=== PATIENT | female | born 1945 | race African-American/Black ===

== ENCOUNTER 2018-03-12 06:44 | Day surgery (SDC) | payer MEDICARE ==
--- OUTSIDE RECORDS SUMMARY | 2018-03-12 06:50 | XMS REPORT ---
:1945 Author Organization eClinicalWorks Care Team Providers Name Role Phone Ko Nii Provider Role Unavailable Allergies No Known Allergies Problems Problem Type Condition Code Onset Dates Condition Status Problem Benign essential HTN I10 Active Problem CKD (chronic kidney disease) stage 3, N18.3 Active GFR 30-59 ml/min Problem Allergic rhinitis J30.9 Active Problem Gastro-esophageal reflux disease K21.9 Active without esophagitis Problem Hyperlipemia, mixed E78.2 Active Medications No Known Medications Results No Known Results Summary Purpose eClinicalWorks Submission
--- OUTSIDE RECORDS SUMMARY | 2018-03-12 06:50 | XMS REPORT ---
:1945 Author Organization eClinicalWorks Care Team Providers Name Role Phone Ko Nii Provider Role Unavailable Allergies, Adverse Reactions, Alerts Substance Reaction Event Type N.K.D.A. Info Not Available Non Drug Allergy Problems Problem Type Condition Code Onset Dates Condition Status Assessment Encounter for screening for other Z11.59 Active viral diseases Assessment Hyperlipemia, mixed E78.2 Active Assessment Gastro-esophageal reflux disease K21.9 Active without esophagitis Assessment Screening for osteoporosis Z13.820 Active Problem Benign essential HTN I10 Active Problem CKD (chronic kidney disease) stage N18.3 Active 3, GFR 30-59 ml/min Problem Allergic rhinitis J30.9 Active Assessment Encounter for preventative adult Z00.01 Active health care exam with abnormal findings Assessment Benign essential HTN I10 Active Problem Gastro-esophageal reflux disease K21.9 Active without esophagitis Problem Hyperlipemia, mixed E78.2 Active Medications Medication Code Code Instructions Start End Status Dosage System Date Date Protonix [facility] 66116431439 40 MG Orally Active 1 tablet Once a day Norvasc [facility] 05583357908 10 MG Active TAKE 1 TABLET BY MOUTH EVERY DAY Hydrochlorothiazide [facility] 22438444197 12.5 MG Orally Active 1 tablet Once a day in the morning Irbesartan [facility] 20342075458 300 MG Orally Active 1 tablet Once a day Results No Known Results Summary Purpose eClinicalWorks Submission
--- OUTSIDE RECORDS SUMMARY | 2018-03-12 06:50 | XMS REPORT ---
:1945 Author Organization eClinicalWorks Care Team Providers Name Role Phone Nii Connell Provider Role Unavailable Allergies No Known Allergies Problems Problem Type Condition Code Onset Dates Condition Status Assessment CKD (chronic kidney disease) stage 3, N18.3 Active GFR 30-59 ml/min Assessment Gastro-esophageal reflux disease K21.9 Active without esophagitis Assessment Allergic rhinitis J30.9 Active Assessment Cough R05 Active Problem Benign essential HTN I10 Active Problem CKD (chronic kidney disease) stage 3, N18.3 Active GFR 30-59 ml/min Problem Allergic rhinitis J30.9 Active Assessment Benign essential HTN I10 Active Assessment Hyperlipemia, mixed E78.2 Active Problem Gastro-esophageal reflux disease K21.9 Active without esophagitis Problem Hyperlipemia, mixed E78.2 Active Medications Medication Code Code Instructions Start End Status Dosage System Date Date [facility] 80585272959 10 MG Active TAKE 1 TABLET BY MOUTH EVERY DAY Tessalon Perles [facility] 19656678482 100 MG Orally August Active 1 capsule Three times a , as needed day PRN Cough 2017 2017 Irbesartan [facility] 58160325106 300 MG Orally Active 1 tablet Once a day Protonix [facility] 22586376653 40 MG Orally Active 1 tablet Once a [facility] 53427[facility]9083 10 MG Orally Active 1 tablet Once a day Hydrochlorothiazide [facility] 28874255844 12.5 MG Orally Active 1 tablet Once a day in the morning Results No Known Results Summary Purpose eClinicalWorks Submission
--- OUTSIDE RECORDS SUMMARY | 2018-03-12 06:51 | XMS REPORT ---
:1945 Author Organization eClinicalWorks Care Team Providers Name Role Phone Ko Nii Provider Role Unavailable Allergies, Adverse Reactions, Alerts Substance Reaction Event Type N.K.D.A. Info Not Available Non Drug Allergy Problems Problem Type Condition Code Onset Dates Condition Status Assessment CKD (chronic kidney disease) stage 3, N18.3 Active GFR 30-59 ml/min Assessment Hyperlipemia, mixed E78.2 Active Assessment Gastro-esophageal reflux disease K21.9 Active without esophagitis Assessment Allergic rhinitis J30.9 Active Problem Benign essential HTN I10 Active Problem CKD (chronic kidney disease) stage 3, N18.3 Active GFR 30-59 ml/min Problem Allergic rhinitis J30.9 Active Assessment Benign essential HTN I10 Active Problem Gastro-esophageal reflux disease K21.9 Active without esophagitis Problem Hyperlipemia, mixed E78.2 Active Medications Medication Code Code Instructions Start End Status Dosage System Date Date [facility] 85335597453 10 MG Active TAKE 1 TABLET BY MOUTH EVERY DAY Hydrochlorothiazide [facility] 83514833483 12.5 MG Orally Active 1 tablet Once a day in the morning [facility] 3307[facility]20 10 MG Orally Active 1 tablet Once a day Irbesartan [facility] 49890261359 300 MG Orally Active 1 tablet Once a day Protonix [facility] 08582006667 40 MG Orally Active 1 tablet Once a day Results No Known Results Summary Purpose eClinicalWorks Submission
--- OUTSIDE RECORDS SUMMARY | 2018-03-12 06:51 | XMS REPORT ---
:1945 Author Organization eClinicalWorks Care Team Providers Name Role Phone Thompson Reese Provider Role Unavailable Allergies, Adverse Reactions, Alerts Substance Reaction Event Type N.K.D.A. Info Not Available Non Drug Allergy Problems Problem Type Condition Code Onset Dates Condition Status Problem Benign essential HTN I10 Active Problem CKD (chronic kidney disease) stage N18.3 Active 3, GFR 30-59 ml/min Problem Allergic rhinitis J30.9 Active Assessment Encounter for screening colonoscopy Z12.11 Active Problem Gastro-esophageal reflux disease K21.9 Active without esophagitis Problem Hyperlipemia, mixed E78.2 Active Medications Medication Code Code Instructions Start End Status Dosage System Date Date Protonix [facility] 67066179324 40 MG Orally Active 1 tablet Once a day [facility] 44594189393 10 MG Active TAKE 1 TABLET BY MOUTH EVERY DAY [facility] 55047932636 10 MG Orally Active 1 tablet Once a day Irbesartan [facility] 43958029525 300 MG Orally Active 1 tablet Once a day Hydrochlorothiazide [facility] 35664050710 12.5 MG Orally Active 1 tablet Once a day in the morning Results No Known Results Summary Purpose eClinicalWorks Submission
--- OUTSIDE RECORDS SUMMARY | 2018-03-12 06:51 | XMS REPORT ---
:1945 Author Organization eClinicalWorks Care Team Providers Name Role Phone Ko [facility] Provider Role Unavailable Allergies No Known Allergies Problems Problem Type Condition Code Onset Dates Condition Status Problem Benign essential HTN I10 Active Problem CKD (chronic kidney disease) stage 3, N18.3 Active GFR 30-59 ml/min Problem Allergic rhinitis J30.9 Active Assessment Benign essential HTN I10 Active Problem Gastro-esophageal reflux disease K21.9 Active without esophagitis Problem Hyperlipemia, mixed E78.2 Active Medications Medication Code System Code Instructions Start Date End Date Status Dosage Irbesartan [facility] 73377457687 300 MG Orally Active 1 tablet Once a day Results No Known Results Summary Purpose eClinicalWorks Submission
[2018-03-12] MEDS ORDERED: Ringers Lactate 1,000 ML IV ONE (07:16)
[2018-03-12] MEDS ORDERED: PROPOFOL 200 MG/20 ML VIAL IV ONE (08:37)
--- NOTE | 2018-03-12 09:03 | ENDO RPT ---
[address], [address] COLONOSCOPY PROCEDURE REPORT EXAM DATE: 03/12/2018 PATIENT NAME: Kendal Shah MR #: [id number] BIRTHDATE: 1945 ATTENDING: Thompson Reese DR STATUS: outpatient ADVANCED CLINICAL SPECIALIST: Dana Clement and Ida Sawyer RN INDICATIONS: The patient is a 72 yr old Female here for a colonoscopy due to colon cancer screening PROCEDURE PERFORMED: Colonoscopy with biopsy - cold polypectomy MEDICATIONS: Per Anesthesia. ESTIMATED BLOOD LOSS: None CONSENT: The patient understands the risks and benefits of the procedure and understands that these risks include, but are not limited to: sedation, allergic reaction, infection, perforation and/or bleeding. Alternative means of evaluation and treatment include, among others: physical exam, x-rays, and/or surgical intervention. The patient elects to proceed with this endoscopic procedure. DESCRIPTION OF PROCEDURE: During intra-op preparation period all mechanical medical equipment was checked for proper function. Hand hygiene and appropriate measures for infection prevention was taken. Procedure, possible complications, alternatives including, but not limited to possibility of bleeding, perforation, tear, infection, sepsis, need for surgery, need for blood transfusion, were explained to the patient. After the risks, benefits and alternatives of the procedure were thoroughly explained, Informed consent was verified, confirmed and timeout was successfully executed by the treatment team. The patient was placed in the left lateral position. A digital rectal exam was performed and revealed no abnormalities of the rectum. After appropriate level of anesthesia, the scope was passed. The EC-[id number] ([id number]) endoscope was introduced through the anus and advanced to the cecum, which was identified by both the appendix and ileocecal valve. The quality of the prep was good. The instrument was then slowly withdrawn as the colon was fully examined. Scope withdrawal time was 8 minutes. COLON FINDINGS: Moderate diverticulosis was noted in the sigmoid colon. No bleeding was noted from the diverticulosis. A diminutive smooth sessile polyp was found in the rectosigmoid colon. A biopsy was performed using cold forceps. Sample was obtained and sent to histology. Traversable stenosis (narrowing) measuring 4 mm in length was found in the rectosigmoid colon. There were no mucosal abnormalities of this region. Retroflexed views revealed no abnormalities. The scope was then completely withdrawn from the patient and the procedure terminated. ADVERSE EVENTS: There were no complications. IMPRESSIONS: 1. Moderate diverticulosis was noted in the sigmoid colon 2. Diminutive sessile polyp was found in the rectosigmoid colon; biopsy was performed using cold forceps 3. Stenosis (narrowing) measuring 4 mm in length in the rectosigmoid colon RECOMMENDATIONS: 1. follow-up: office 2 week(s) 2. await biopsy results 3. avoid NSAIDS for 2 weeks 4. low fiber / diverticular diet 5. yearly hemoccult starting in 4 years RECALL: Return in 5 year(s) for Colonoscopy, pending biopsy results. Thompson Reese DR eSigned: Thompson Reese DR 03/12/2018 9:03 AM cc: CPT CODES: ICD9 CODES: PATIENT NAME: Kendal Shah MR#: [id number]
== END 2018-03-12 09:40 | disposition home or self-care (01) ==
LOC: OR 06:44
PROVIDERS: ATTEND Surgery
PROC: 0DBN8ZX Excision of Sigmoid Colon, Via Natural or Artificial Opening Endoscopic, Diagnostic (ICD-10-PCS; principal; 2018-03-12 08:30)
DX: Z12.11 Encounter for screening for malignant neoplasm of colon (principal); K63.5 Polyp of colon; K57.30 Diverticulosis of large intestine without perforation or abscess without bleeding; K56.699 Other intestinal obstruction unspecified as to partial versus complete obstruction; I10 Essential (primary) hypertension; E78.2 Mixed hyperlipidemia; K21.9 Gastro-esophageal reflux disease without esophagitis; Z86.010 Personal history of colon polyps; Z88.6 Allergy status to analgesic agent; Z82.49 Family history of ischemic heart disease and other diseases of the circulatory system
CPT/HCPCS: 88305

== ENCOUNTER 2018-03-25 10:27 | Emergency (ER) | payer MEDICARE ==
--- OUTSIDE RECORDS SUMMARY | 2018-03-25 10:29 | XMS REPORT ---
[...] Start End Status Dosage System Date Date [facility] [place] 18111510434 10 MG Active TAKE 1 TABLET BY MOUTH EVERY DAY Tessalon Perles [facility] 90766369158 100 MG Orally August Active 1 capsule Three times a , as needed day PRN Cough 2017 2017 Irbesartan [facility] 14715830379 300 MG Orally Active 1 tablet Once a day Protonix [facility] 91848660912 40 MG Orally Active 1 tablet Once a day [facility] 71369901121 10 MG Orally Active 1 tablet Once a day Hydrochlorothiazide [facility] 15171485211 12.5 MG Orally Active 1 tablet Once a day in the morning Results No Known Results Summary Purpose eClinicalWorks Submission
--- OUTSIDE RECORDS SUMMARY | 2018-03-25 10:30 | XMS REPORT ---
[...] End Status Dosage System Date Date Protonix [facility] 12692270299 40 MG Orally Active 1 tablet Once a day Norvasc [facility] 06257125923 10 MG Active TAKE 1 TABLET BY MOUTH EVERY DAY Hydrochlorothiazide [facility] 95709222451 12.5 MG Orally Active 1 tablet Once a day in the morning Irbesartan [facility] 97646970461 300 MG Orally Active 1 tablet Once a day Results No Known Results Summary Purpose eClinicalWorks Submission
--- OUTSIDE RECORDS SUMMARY | 2018-03-25 10:30 | XMS REPORT ---
:1945 Author Organization eClinicalWorks Care Team Providers Name Role Phone Ko [facility] Provider Role Unavailable Allergies No Known Allergies [...] Start Date End Date Status Dosage Irbesartan [facility] 97259811477 300 MG Orally Active 1 tablet Once a day Results No Known Results Summary Purpose eClinicalWorks Submission
--- OUTSIDE RECORDS SUMMARY | 2018-03-25 10:30 | XMS REPORT ---
[...] End Status Dosage System Date Date Protonix [facility] 12969292665 40 MG Orally Active 1 tablet Once a day [facility] 81456482264 10 MG Active TAKE 1 TABLET BY MOUTH EVERY DAY [facility] 01104332222 10 MG Orally Active 1 tablet Once a day Irbesartan [facility] 01552204224 300 MG Orally Active 1 tablet Once a day Hydrochlorothiazide [facility] 27551730349 12.5 MG Orally Active 1 tablet Once a day in the morning Results No Known Results Summary Purpose eClinicalWorks Submission
--- OUTSIDE RECORDS SUMMARY | 2018-03-25 10:30 | XMS REPORT ---
[...] Start End Status Dosage System Date Date [facility] 83357267002 10 MG Active TAKE 1 TABLET BY MOUTH EVERY DAY Hydrochlorothiazide [facility] 70131144554 12.5 MG Orally Active 1 tablet Once a day in the morning [facility] 26050014197 10 MG Orally Active 1 tablet Once a day Irbesartan [facility] 36441441247 300 MG Orally Active 1 tablet Once a day Protonix [facility] 57611523621 40 MG Orally Active 1 tablet Once a day Results No Known Results Summary Purpose eClinicalWorks Submission
[2018-03-25] MEDS ORDERED: IBUPROFEN 400 MG TAB ONE (12:12)
[2018-03-25] MEDS ORDERED: ACETAMINOPHEN 500 MG TAB ONE (12:13)
--- NOTE | 2018-03-25 12:24 | RAD REPORT ---
EXAM DESCRIPTION: RAD - Shoulder Right 2 View - 03/25/2018 11:56 am CLINICAL HISTORY: Right shoulder pain FINDINGS: No fracture or dislocation is seen. Mild to moderate osteoarthritis involves the AC joint consisting of small osteophytes and joint space narrowing.
--- NOTE | 2018-03-25 13:04 | ER ---
Nurse's Notes [facility] Name: Kendal Shah Age: 72 yrs Sex: Female : 1945 Arrival Date: 03/25/2018 Time: 10:29 Bed 10 Private MD: Nii Connell Diagnosis: Right Upper Extremity Pain Presentation: 03/25 10:39 Presenting complaint: Patient states: Right shoulder pain radiates to wrist since last jl7 night. Denies any trauma. Transition of care: patient was not received from another setting of care. Onset of symptoms was March 24, 2018. Risk Assessment: Do you want to hurt yourself or someone else? Patient reports no desire to harm self or others. Initial Sepsis Screen: Does the patient meet any 2 criteria? No. Patient's initial sepsis screen is negative. Does the patient have a suspected source of infection? No. Patient's initial sepsis screen is negative. Care prior to arrival: None. 10:39 Method Of Arrival: Ambulatory jl7 10:39 Acuity: ARTHUR 4 jl7 Historical: - Allergies: 10:41 No Known Allergies; jl7 - PMHx: 10:41 Hypertension; GERD; jl7 - PSHx: 10:41 right hand surgery; Hysterectomy; ; Right breast biopsy; Left knee replacement;jl7 - Immunization history:: Adult Immunizations up to date. - Social history:: Smoking status: Patient/guardian denies using tobacco. - Ebola Screening: : No symptoms or risks identified at this time. - Family history:: not pertinent. - Hospitalizations: : No recent hospitalization is reported. Screenin:04 Abuse screen: Denies threats or abuse. Denies injuries from another. Nutritional iw screening: No deficits noted. Tuberculosis screening: No symptoms or risk factors identified. Fall Risk None identified. Assessment: 11:03 General: Appears in no apparent distress. comfortable, Behavior is calm, cooperative. iw Pain: Complains of pain in posterior aspect of right shoulder and right wrist. Neuro: Level of Consciousness is awake, alert, obeys commands, Oriented to person, place, time, situation, Moves all extremities. Full function. Cardiovascular: Patient's skin is warm and dry. Respiratory: Respiratory effort is even, unlabored, Respiratory pattern is regular, symmetrical. Derm: Skin is intact, is healthy with good turgor. Musculoskeletal: Range of motion: intact in all extremities, Reports pain in anterior aspect of right shoulder and right wrist. Vital Signs: 10:41 BP 177 / 81; Pulse 97; Resp 18 S; Temp 99.1(O); Pulse Ox 99% on R/A; Weight 83.91 kg jl7 (R); Height 5 ft. 4 in. (162.56 cm) (R); Pain 10/10; 12:30 BP 155 / 79; Pulse 79; Resp 16; Pulse Ox 97% ; Pain 5/10; jl7 10:41 Body Mass Index 31.75 (83.91 kg, 162.56 cm) jl7 ED Course: 10:29 Patient arrived in ED. as 10:29 Nii Connell DO is Private Physician. as 10:40 Triage completed. jl7 10:41 Arm band placed on right wrist. jl7 10:43 Anai Ellis RN is Primary Nurse. iw 10:59 Carlo Garcia MD is Attending Physician. wa 11:05 Patient has correct armband on for positive identification. iw 11:50 X-ray completed. Portable x-ray completed in exam room. Patient tolerated procedure ag1 well. 11:53 Shoulder Right (2 View) XRAY In Process Unspecified. EDMS 12:28 EKG done, by aeronautical engineering technologist. reviewed by Carlo Garcia MD. at1 13:03 Sameer Bill MD is Referral Physician. wa 13:20 No provider procedures requiring assistance completed. Patient did not have IV access iw during this emergency room visit. Administered Medications: 12:14 Drug: Tylenol 1000 mg Route: PO; iw 13:00 Follow up: Response: No adverse reaction; Pain is decreased iw 12:14 Not Given (Patient Refused): Motrin 400 mg PO once iw Outcome: 13:04 Discharge ordered by . wa 13:22 Discharged to home ambulatory. iw 13:22 Condition: good 13:22 Discharge instructions given to patient, Instructed on discharge instructions, follow up and referral plans. Demonstrated understanding of instructions, follow-up care. 13:23 Patient left the ED. iw Signatures: Dispatcher [employer] EDMS Anastasiya Rodriguez Irene, RN RN iw Josefa Thorne, manager quality EKG Tat1 Ruth Camarillo ag1 Jax Dubois RN RN jlCarlo Carballo MD MD wa
--- NOTE | 2018-03-25 13:04 | EDPHYS ---
Physician Documentation [facility] Name: Kendal Shah Age: 72 yrs Sex: Female : 1945 Arrival Date: 03/25/2018 Time: 10:29 Bed 10 Private MD: Nii Connell ED Physician Carlo Garcia HPI: 03/25 12:00 This 72 yrs old Black Female presents to ER via Ambulatory with complaints of Shoulder wa Pain. 12:00 The patient or guardian complains of tenderness. right shoulder. Context: denies wa injury. states awoke with R shoulder pain with assoc numbness to the right arm. worse with movement. denies SOB. denies chest pain. Onset: The symptoms/episode began/occurred today. Modifying factors: the symptoms are alleviated by nothing. The symptoms are aggravated by lifting weight, movement, rotation of arm. Associated signs and symptoms: Pertinent negatives: chest pain, diaphoresis, dyspnea, shortness of breath, tingling. Severity of symptoms: At their worst the symptoms were moderate, in the emergency department the symptoms are unchanged. The patient has not experienced similar symptoms in the past. The patient has not recently seen a physician. Historical: - Allergies: 10:41 No Known Allergies; jl7 - PMHx: 10:41 Hypertension; GERD; jl7 - PSHx: 10:41 right hand surgery; Hysterectomy; ; Right breast biopsy; Left knee replacement;jl7 - Immunization history:: Adult Immunizations up to date. - Social history:: Smoking status: Patient/guardian denies using tobacco. - Ebola Screening: : No symptoms or risks identified at this time. - Family history:: not pertinent. - Hospitalizations: : No recent hospitalization is reported. ROS: 12:03 Constitutional: Negative for fever, chills, and weight loss, Eyes: Negative for injury, wa pain, redness, and discharge, ENT: Negative for injury, pain, and discharge, Neck: Negative for injury, pain, and swelling, Cardiovascular: Negative for chest pain, palpitations, and edema, Respiratory: Negative for shortness of breath, cough, wheezing, and pleuritic chest pain, Abdomen/GI: Negative for abdominal pain, nausea, vomiting, diarrhea, and constipation, Back: Negative for injury and pain, : Negative for injury, bleeding, discharge, and swelling, Skin: Negative for injury, rash, and discoloration, Neuro: Negative for headache, weakness, numbness, tingling, and seizure, Psych: Negative for depression, anxiety, suicide ideation, homicidal ideation, and hallucinations. 12:03 MS/extremity: Positive for pain, tenderness, of the right shoulder and right arm, Negative for contusion, deformity, ecchymosis, erythema. 12:03 All other systems are negative. Exam: 12:03 Constitutional: This is a well developed, well nourished patient who is awake, alert, wa and in no acute distress. Head/Face: Normocephalic, atraumatic. Eyes: Pupils equal round and reactive to light, extra-ocular motions intact. Lids and lashes normal. Conjunctiva and sclera are non-icteric and not injected. Cornea within normal limits. Periorbital areas with no swelling, redness, or edema. ENT: Nares patent. No nasal discharge, no septal abnormalities noted. Tympanic membranes are normal and external auditory canals are clear. Oropharynx with no redness, swelling, or masses, exudates, or evidence of obstruction, uvula midline. Mucous membranes moist. Neck: Trachea midline, no thyromegaly or masses palpated, and no cervical lymphadenopathy. Supple, full range of motion without nuchal rigidity, or vertebral point tenderness. No Meningismus. Chest/axilla: Normal chest wall appearance and motion. Nontender with no deformity. No lesions are appreciated. Cardiovascular: Regular rate and rhythm with a normal S1 and S2. No gallops, murmurs, or rubs. Normal PMI, no JVD. No pulse deficits. Respiratory: Lungs have equal breath sounds bilaterally, clear to auscultation and percussion. No rales, rhonchi or wheezes noted. No increased work of breathing, no retractions or nasal flaring. Abdomen/GI: Soft, non-tender, with normal bowel sounds. No distension or tympany. No guarding or rebound. No evidence of tenderness throughout. Back: No spinal tenderness. No costovertebral tenderness. Full range of motion. Skin: Warm, dry with normal turgor. Normal color with no rashes, no lesions, and no evidence of cellulitis. Neuro: Awake and alert, GCS 15, oriented to person, place, time, and situation. Cranial nerves II-XII grossly intact. Motor strength 5/5 in all extremities. Sensory grossly intact. Cerebellar exam normal. Normal gait. Psych: Awake, alert, with orientation to person, place and time. Behavior, mood, and affect are within normal limits. 12:03 Musculoskeletal/extremity: Extremities: noted in the right shoulder and right arm: pain, tenderness. Vital Signs: 10:41 BP 177 / 81; Pulse 97; Resp 18 S; Temp 99.1(O); Pulse Ox 99% on R/A; Weight 83.91 kg jl7 (R); Height 5 ft. 4 in. (162.56 cm) (R); Pain 10/10; 12:30 BP 155 / 79; Pulse 79; Resp 16; Pulse Ox 97% ; Pain 5/10; jl7 10:41 Body Mass Index 31.75 (83.91 kg, 162.56 cm) jl7 MDM: 10:59 Patient medically screened. wa 12:04 Differential diagnosis: DJD, tendonitis, consider radiculopathy. will check EKG to r/o wa ACS, although less likely. 13:00 Data reviewed: vital signs, nurses notes, EKG, radiologic studies. Test interpretation: wa by ED physician or midlevel provider: EKG: HR 85. NSR. no acute ischemic changes. R shoulder X-ray: Mild to moderate osteoarthritis.. Response to treatment: the patient's symptoms have mildly improved after treatment. ED course: will d/c with f/u with neurology. may need MRI to r/o cervical radiculopathy. 03/25 11:41 Order name: Shoulder Right (2 View) XRAY; Complete Time: 12:51 oh 03/25 11:41 Order name: EKG - Nurse/Tech; Complete Time: 12:26 wa 03/25 12:44 Order name: EKG Electrocardiogram EDNY 03/25 13:00 Order name: Sling: OTTO; Complete Time: 13:57 oh Administered Medications: 12:14 Drug: Tylenol 1000 mg Route: PO; iw 13:00 Follow up: Response: No adverse reaction; Pain is decreased iw 12:14 Not Given (Patient Refused): Motrin 400 mg PO once iw Disposition: 03/25/18 13:04 Discharged to Home. Impression: Right Upper Extremity Pain. - Condition is Stable. - Medication Reconciliation Form, Thank You Letter, Antibiotic Education, Prescription Opioid Use form. - Follow up: Sameer Bill MD; When: 2 - 3 days; Reason: Recheck today's complaints. - Problem is new. - Symptoms have improved. - Notes: follow up with the neurologist for further 3evaluation. you may need an MRI to make sure you do not have a nerve impingement. wear sling for comfort. take tylenol and aleve as needed as discussed Signatures: Dispatcher [employer] EDAnai Montenegro RN RN iw Jax Dubois RN RN jl7 Carlo Garcia MD MD wa Corrections: (The following items were deleted from the chart) 13:23 13:04 03/25/2018 13:04 Discharged to Home. Impression: Right Upper Extremity Pain. iw Condition is Stable. Forms are Medication Reconciliation Form, Thank You Letter, Antibiotic Education, Prescription Opioid Use. Follow up: Sameer Bill; When: 2 - 3 days; Reason: Recheck today's complaints. Problem is new. Symptoms have improved. wa
--- NOTE | 2018-03-25 13:53 | EKG ---
Test Date: 2018-03-25 Test Time: 12:18:28 Lan Analyst: PREET MEASUREMENT RESULTS: Intervals: Rate: 85 ME: 162 QRSD: 62 QT: 362 QTc: 430 [place]: P: 64 ME: 162 QRS: 52 T: 43 INTERPRETIVE STATEMENTS: Normal sinus rhythm Septal infarct, age undetermined Abnormal ECG Compared to ECG 06/20/2015 09:18:13 Myocardial infarct finding now present Sinus bradycardia no longer present Electronically Signed On 03-25-18 13:53:03 CDT by Joseph Drummond
== END 2018-03-25 13:23 | disposition home or self-care (01) ==
LOC: ER 10:27
DX: M25.511 Pain in right shoulder (principal)
CPT/HCPCS: 93005; 99283

== ENCOUNTER 2020-08-22 06:26 | Observation (INO) | payer MEDICARE ==
--- OUTSIDE RECORDS SUMMARY | 2020-08-22 06:29 | XMS REPORT | Continuity of Care Document ---
:1945 Author Organization [facility] t Address [address] [place] [place] [address] Care Team Providers Name Role Phone Unavailable Unavailable Unavailable Problems This patient has no known problems. Allergies, Adverse Reactions, Alerts This patient has no known allergies or adverse reactions. Medications Ordered Filled Start Stop Current Ordering Indication Dosage Frequency Signature Comments Components Source Medication Medication Date Date Medication? Clinician (SIG) Name Name [facility] Aspir-Low Yes Nii [address] [facility] 1-20 [facility] 00 [facility] ent [facility] Atorvastati Atorvastati 2018-05 Yes Nii TAKE [address] [facility] n Calcium n Calcium 0-17 Connell TABLET BY [facility] - 00:00: MOUTH ONCE Memoria 00 DAILY l [facility] ent [facility] Dexilant Dexilant Yes Nii [address] [facility] 7-17 [facility]nell [facility]: [facility] 00 l [facility] ent [facility] Norvasc Norvasc Yes Nii TAKE [facility]nell TABLET BY [facility] - MOUTH ONCE Memoria DAILY l [facility] ent [facility] Irbesartan Irbesartan Yes Nii [address] [facility] Clinics Cromolyn Cromolyn Yes Nii [address] [facility] Sodium Sodium Connell each [facility] - nostril [facility] ent [facility] Hydrochloro Hydrochloro Yes Nii [address] [facility] thiazide thiazide Connell in the [facility] Procedures This patient has no known procedures. Encounters Start End Encounter Admission Attending Care Care Encounter Source Date/Time Date/Time Type Type Clinicians Facility Department ID 2020-07-28 2020-07-28 Outpatient [facility] [id number] 2020-04-29 2020-04-29 [id number] 2020-04-28 2020-04-28 [id number] 2020-03-16 2020-03-16 [facility] [id number] 2020-02-04 2020-02-04 [facility] [id number] [facility] 09[facility]25:00 09:25:00 t [employer] [facility] Out[facility] Clinics 2020-01-28 2020-01-28 [facility] [id number] [facility] 13:40:00 13:40:00 [place] [facility] [employer] [facility] Clinics 2020-01-28 2020-01-28 [facility] [id number] [facility] 13:40:00 13:40:00 t [employer] - [employer] [facility] Medicine Out[facility] Clinics 2019-10-29 2019-10-29 [facility] [id number] 14:30:00 14:30:00 [place] [facility] [employer] [facility] Medicine Out[facility] Clinics 2019-09-04 2019-09-04 [facility] [id number] [facility] 14:55:00 14:55:00 [place] [facility] [employer] [facility] Medicine l Medicine Outpati ent Clinics 2019-06-15 2019-06-15 [facility] [id number] 14:30:00 14:30:00 t [employer] [facility] Medicine l Medicine Outpati ent Clinics 2019-04-24 2019-04-24 [facility] [id number] [address] 10:04:00 10:04:[address] [employer] [address] [facility] Medicine Medicine Outpati ent Clinics 2019-03-12 2019-03-12 [facility] [id number] [address] 14:30:00 14:30:00 [place] [employer] [place] [facility] - Drive [facility] Medicine Outpati ent Clinics 2019-02-04 2019-02-04 [facility] [id number] [address] 11:01:00 11:01:00 t [place] [employer] [place] - Drive [facility] Medicine Outpati ent Clinics 2018-12-16 2018-12-16 [facility] [id number] 09:46:00 09:46:00 t [place] [employer] - Drive [facility] Medicine Outpati ent Clinics 2018-12-10 2018-12-10 [facility] [id number] 14:45:00 14:45:00 [place] [employer] - Drive [facility] Medicine Outpati ent Clinics 2018-09-10 2018-09-10 [facility] [id number] [address] 14:45:00 14:45:00 t [place] [employer] [place] - Drive [facility] Medicine Outpati ent Clinics 2018-05-15 2018-05-15 [facility] [id number] 13:30:00 13:30:00 t [place] [employer] - Drive [facility] Medicine Outpati ent Clinics 2018-02-11 2018-02-11 [facility] [id number] 14:07:00 14:07:00 t [place] [employer] - Drive [facility] Medicine Outpati ent Clinics 2018-02-11 2018-02-11 [facility] [id number] 13:30:00 13:30:00 t Specialty/U Erika kes [facility] Clin[facility] 2018-01-16 2018-01-16 [facility] [id number] 13:30:00 13:30:00 t [place] [employer] - Drive [facility] Medicine Outpati ent Clinics 2017-12-03 2017-12-03 [facility] [id number] [facility] [address] 11:26:00 11:26:[address] [facility] 2017-11-04 2017-11-04 [facility] [id number] [facility] [address] 15:30:00 15:30:[address] [employer] 2017-09-16 2017-09-16 Outpatient Britney Tant [id number] [facility] [address] 13:30:00 13:30:[address] [facility] Results This patient has no known results.
[2020-08-22] MEDS ORDERED: MORPHINE 4 MG/ML SYR ONE (07:45)
[2020-08-22] MEDS ORDERED: ONDANSETRON 4 MG/2 ML VIAL ONE (07:45)
[2020-08-22] MEDS ORDERED: NA CHLORIDE 0.9% 1,000 ML ONE (07:46)
[2020-08-22 08:14] LABS: Absolute Lymphocytes (CBC) 1.1 K/uL (0.7-4.9); Basophils % 0.7 % (0-1.3); Hematocrit 40.3 % (36.0-45.0); Lymphocytes % 13.2 % (15.3-44.8); MPV 9.9 fL (7.6-11.3); RBC Red Blood Cell Count 4.38 M/uL (3.86-4.86)
[2020-08-22 08:34] LABS: Urine Blood TRACE (Negative); Urine Glucose NEGATIVE (Negative); Urine Protein 1+ (NEG); Urine Specific Gravity >1.030 (1.005-1.030); Urine pH 7.5 (5.0-7.0)
[2020-08-22 08:42] LABS: ALT/SGPT 34 U/L (12-78); AST/SGOT 25 U/L (15-37); Albumin 4.2 g/dL (3.4-5.0); Alkaline Phosphatase 83 U/L (45-117); BUN Blood Urea Nitrogen 14 mg/dL (7-18); Bicarbonate 26 mmol/L (21-32); Bilirubin Direct 0.1 mg/dL (0-0.2); Bilirubin Total 0.4 mg/dL (0.2-1.0); Glucose Level 112 mg/dL (74-106); Lipase 52 U/L (73-393); Potassium 3.3 mmol/L (3.5-5.1); Protein, Total 8.8 g/dL (6.4-8.2); Sodium Level 140 mmol/L (136-145); Troponin (Emerg Dept Use Only) < 0.02 ng/mL (0.0-0.045)
--- NOTE | 2020-08-22 08:56 | RAD REPORT ---
EXAM DESCRIPTION: CT - Abdomen Pelvis W Contrast - 08/22/2020 8:24 am CLINICAL HISTORY: ABD PAIN COMPARISON: No comparisons TECHNIQUE: Biphasic, helical CT imaging of the abdomen and pelvis was performed following 100 ml non -ionic IV contrast. No oral contrast administered. All CT scans are performed using dose optimization technique as appropriate and may include automated exposure control or mA/KV adjustment according to patient size. FINDINGS: No suspicious findings in the lung bases. The liver, spleen, and pancreas show no suspicious findings. Liver attenuation is borderline fatty in filtrated. No portal vein abnormality. Gallbladder and biliary tree are also without suspicious findi ng. Symmetric renal function is seen with no hydronephrosis or suspicious renal mass. No pyelonephritis o r acute parenchymal process. No bladder abnormalities. No adrenal abnormalities. Uterus is absent. Ov chidi are absent or atrophic. No adnexal abnormality. Small hiatal hernia is present. This distorts the cunningham of the distal esophagus and proximal stomach. No gross evidence for mass or ulceration. Small ulcer or mass at the mucosal level can be obscured. Wall thickness of the greater curvature stomach is distorted by peristalsis. Antrum does not appear a bnormally thickened. No duodenal abnormality. Small bowel is otherwise unremarkable. The appendix is not identified and may be absent. No indirect evidence for appendicitis. Cecum lies along the floor t he pelvis on the right. No active colon process identified. No free air, free fluid or inflammatory stranding. No hernia, mass or bulky lymphadenopathy. No suspicious bony findings. Prominent degenerative changes are present at the lumbosacral junction. L5 pars defects are present. The L5-S1 disc space is effaced and there is probably bony fusion across this disc level. IMPRESSION: Contrast enhanced CT abdomen and pelvis showing no acute or emergent finding. Small hiatal hernia is present. No gross abnormality of the stomach or distal esophagus. Mucosal leve l ulceration or small mass lesion can be occult on CT imaging.
--- NOTE | 2020-08-22 09:40 | RAD REPORT ---
EXAM DESCRIPTION: US - Abdomen Exam Limited - 08/22/2020 9:28 am CLINICAL HISTORY: RUQ abd pain COMPARISON: Abdomen Pelvis W Contrast dated 08/22/2020 FINDINGS: Gallbladder size is normal. No gallstones identified. No gallbladder wall thickening or ma ss. There may be a trace amount of sludge layering on the dependent portion of the gallbladder. Commo n bile duct is normal with no common duct stone identified. Partially imaged liver shows no gross abnormality. IMPRESSION: No gallstones or significant gallbladder finding. Patient may have a trace amount of slu dge in the gallbladder lumen. No biliary tree abnormality seen.
[2020-08-22] MEDS ORDERED: METRONIDAZOLE 500mg IVPB 500 MG/100 ML BAG IV ONE (09:55)
[2020-08-22] MEDS ORDERED: CEFTRIAXONE/SWI 1gm 1 GM/10 ML SYR ONE (09:55)
--- NOTE | 2020-08-22 11:17 | ER ---
Nurse's Notes [facility] Name: Kendal Shah Age: 74 yrs Sex: Female : 1945 Arrival Date: 08/22/2020 Time: 06:30 Bed 19 Private MD: Nii Connell Diagnosis: Epigastric abdominal tenderness;Upper abdominal pain, unspecified Presentation: 08/22 06:41 Chief complaint: Patient states: she woke up at approx 0300 this morning with bb epigastric pain radiating to her back denies vomiting or diarrhea. Coronavirus screen: At this time, the client does not indicate any symptoms associated with coronavirus-19. Ebola Screen: No symptoms or risks identified at this time. Initial Sepsis Screen: Does the patient meet any 2 criteria? No. Patient's initial sepsis screen is negative. Does the patient have a suspected source of infection? No. Patient's initial sepsis screen is negative. Risk Assessment: Do you want to hurt yourself or someone else? Patient reports no desire to harm self or others. Onset of symptoms was August 22, 2020. 06:41 Method Of Arrival: Ambulatory bb 06:41 Acuity: ARTHUR 3 bb Triage Assessment: 07:00 General: Appears in no apparent distress. uncomfortable, obese, Behavior is bp cooperative, appropriate for age, anxious. Pain: Complains of pain in abdomen. EENT: No deficits noted. Neuro: No deficits noted. Cardiovascular: No deficits noted. Respiratory: No deficits noted. GI: Abdomen is non-distended, obese. : No signs and/or symptoms were reported regarding the genitourinary system. Derm: No deficits noted. Musculoskeletal: No deficits noted. Historical: - Allergies: 07:09 No Known Allergies; bp - Home Meds: 10:40 atorvastatin 10 mg oral tab 1 tab once daily [Active]; hydrochlorothiazide 12.5 mg Oral bp cap 1 cap once daily [Active]; amlodipine 10 mg tab 1 tab once daily [Active]; irbesartan 300 mg oral tab 1 tab once daily [Active]; Vitamin D Oral [Active]; cromolyn 5.2 mg/spray (4 %) Nasal spry 1 spray 3 times per day [Active]; - PMHx: 07:09 GERD; Hypertension; bp - Immunization history:: Adult Immunizations up to date. - Social history:: Smoking status: Patient denies any tobacco usage or history of. Patient/guardian denies using alcohol, street drugs, Patient/guardian denies using The patient lives with family, with spouse. - Family history:: not pertinent. Screenin:00 Abuse screen: Denies threats or abuse. Denies injuries from another. Nutritional bp screening: No deficits noted. Tuberculosis screening: No symptoms or risk factors identified. Fall Risk None identified. Assessment: 07:00 General: SEE TRIAGE NOTE. bp 08:09 Reassessment: No changes from previously documented assessment. Patient and/or family bp updated on plan of care and expected duration. Pain level reassessed. PT TO CT. 09:10 Reassessment: PT IN U/S. bp 10:22 Reassessment: No changes from previously documented assessment. Patient and/or family bp updated on plan of care and expected duration. Pain level reassessed. PT RETURNED FROM U/S. DISPO PENDING. 11:06 Reassessment: No changes from previously documented assessment. Patient and/or family bp updated on plan of care and expected duration. Pain level reassessed. ALL CURRENT ORDERS COMPLETED. 11:53 Reassessment: D/C CANCELLED BY . ADMIT PENDING. Pain: Complains of pain in abdomen. bp 14:00 Reassessment: No changes from previously documented assessment. Patient and/or family bp updated on plan of care and expected duration. Pain level reassessed. Patient is alert, oriented x 3, equal unlabored respirations, skin warm/dry/pink. ADMIT INITIATED. 16:00 Reassessment: No changes from previously documented assessment. Patient and/or family bp updated on plan of care and expected duration. Pain level reassessed. Patient is alert, oriented x 3, equal unlabored respirations, skin warm/dry/pink. ADMIT IN PROCESS. 17:00 GI: Bowel sounds present X 4 quads. Abd is soft X 4 quads. bp 17:09 Reassessment: REPORT TO LLOYD HERNANDEZ FOR RM 232. bp Vital Signs: 06:41 BP 160 / 81; Pulse 104; Resp 18 S; Temp 98.4(O); Pulse Ox 99% on R/A; Weight 81.65 kg bb (R); Height 5 ft. 4 in. (162.56 cm) (R); Pain 10/10; 08:09 BP 156 / 69; Pulse 98; Resp 16; Pulse Ox 96% ; bp 10:10 BP 151 / 72; Pulse 98; Resp 17; Pulse Ox 98% ; bp 11:06 BP 141 / 94; Pulse 100; Resp 17; Pulse Ox 100% ; bp 11:54 BP 141 / 79; Pulse 108; Resp 17; Pulse Ox 92% on R/A; bp 06:41 Body Mass Index 30.90 (81.65 kg, 162.56 cm) bb ED Course: 06:30 Patient arrived in ED. es 06:30 Nii Connell DO is Private Physician. es 06:41 Arm band placed on Patient placed in an exam room, on a stretcher, on pulse oximetry. bb 06:43 Triage completed. bb 06:44 Andrés Adhikari MD is Attending Physician. [facility] 06:50 EKG done, by ED staff, reviewed by Andrés Adhikari MD. bb 07:00 Patient has correct armband on for positive identification. Bed in low position. Call bp light in reach. Side rails up X2. 07:03 Attending Physician role handed off by Andrés Adhikari MD ma2 07:03 Richard Mao MD is Attending Physician. ma2 07:08 Rolf Arroyo, DAVID is Primary Nurse. bp 08:05 Inserted saline lock: 24 gauge in right wrist, using aseptic technique. Blood collected.bp 08:08 Hepatic Function Sent. bp 08:08 CBC with Diff Sent. bp 08:08 Basic Metabolic Panel Sent. bp 08:08 Lipase Sent. bp 08:24 CT Abd/Pelvis - IV Contrast Only In Process Unspecified. EDMS 09:28 US Abdomen Limited In Process Unspecified. EDMS 11:16 Sawyer Cordoba MD is Referral Physician. ma2 11:16 Nii Connell DO is Referral Physician. ma2 11:54 Arthur Means is Hospitalizing Provider. ma2 17:10 No provider procedures requiring assistance completed. Patient admitted, IV remains in bp place. Administered Medications: 08:07 Drug: morphine 4 mg Route: IVP; Site: right wrist; bp 09:44 Follow up: Response: Pain is decreased bp 08:08 Drug: Zofran (Ondansetron) 4 mg Route: IVP; Site: right wrist; bp 09:44 Follow up: Response: No adverse reaction bp 08:08 Drug: NS 0.9% 1000 ml Route: IV; Rate: 1 bolus; Site: right wrist; bp 17:26 Follow up: IV Status: Completed infusion; IV Intake: 1000ml bp 09:15 Drug: Rocephin (cefTRIAXone) 1 grams Route: IV; Rate: calculated rate; Site: right bp wrist; 11:55 Follow up: IV Status: Completed infusion; IV Intake: 50ml bp 09:15 Drug: Flagyl 500 mg Volume: 100 ml; Route: IVPB; Rate: 200 ml/hr; Infused Over: 30 bp mins; Site: right wrist; 11:55 Follow up: IV Status: Completed infusion; IV Intake: 100ml bp 11:45 Drug: GI Cocktail without - (Maalox Suspension 30 ml, Lidocaine Liquid 2 % 15 bp ml) Route: PO; 13:42 Follow up: Response: No adverse reaction bp 11:45 Drug: Dilaudid (HYDROmorphone) 1 mg Route: IVP; Site: right wrist; bp 13:41 Follow up: Response: Pain is decreased bp 11:45 Drug: Promethazine 12.5 mg Route: IVP; Site: right wrist; bp 13:41 Follow up: Response: No adverse reaction bp Intake: 11:55 IV: 50ml; Total: 50ml. bp 11:55 IV: 100ml; Total: 150ml. bp 17:26 IV: 1000ml; Total: 1150ml. bp Outcome: 11:16 Discharge ordered by . fransisco 11:55 Decision to Hospitalize by Provider. ma2 17:25 Admitted to Med/surg accompanied by tech, room 232, with chart, Report called to LLOYD mitchell RN 17:25 Condition: stable 17:25 Instructed on the need for admit. 17:52 Patient left the ED. bp Signatures: Dispatcher [employer] Mary Ann Pappas Brenda, RN RN Rolf Lundberg RN RN Richard Rodney MD MD ma2 Andrés Adhikari MD MD [email or web address] Corrections: (The following items were deleted from the chart) 10:43 07:09 Home Meds: Unable to obtain; bp bp
--- NOTE | 2020-08-22 11:17 | EDPHYS ---
Physician Documentation [facility] Name: Kendal Shah Age: 74 yrs Sex: Female : 1945 Arrival Date: 08/22/2020 Time: 06:30 Bed 19 Private MD: [facility] ED Physician Richard Mao HPI: 08/22 08:47 This 74 yrs old Black Female presents to ER via Ambulatory with complaints of Abdominal ma2 Pain. 08:47 The patient presents with abdominal pain. Onset: The symptoms/episode began/occurred ma2 gradually, 1 day(s) ago. Associated signs and symptoms: Pertinent negatives: anorexia, constipation, diarrhea, dysuria. Severity of pain: At its worst the pain was moderate in the emergency department the pain is unchanged. The patient has not experienced similar symptoms in the past. Historical: - Allergies: 07:09 No Known Allergies; bp - Home Meds: 10:40 atorvastatin 10 mg oral tab 1 tab once daily [Active]; hydrochlorothiazide 12.5 mg Oral bp cap 1 cap once daily [Active]; amlodipine 10 mg tab 1 tab once daily [Active]; irbesartan 300 mg oral tab 1 tab once daily [Active]; Vitamin D Oral [Active]; cromolyn 5.2 mg/spray (4 %) Nasal spry 1 spray 3 times per day [Active]; - PMHx: 07:09 GERD; Hypertension; bp - Immunization history:: Adult Immunizations up to date. - Social history:: Smoking status: Patient denies any tobacco usage or history of. Patient/guardian denies using alcohol, street drugs, Patient/guardian denies using The patient lives with family, with spouse. - Family history:: not pertinent. ROS: 08:47 Constitutional: Negative for fever, chills, and weight loss. ma2 08:47 All other systems are negative. Exam: 08:47 Constitutional: This is a well developed, well nourished patient who is awake, alert, ma2 and in no acute distress. Head/Face: Normocephalic, atraumatic. Eyes: Pupils equal round and reactive to light, extra-ocular motions intact. Lids and lashes normal. Conjunctiva and sclera are non-icteric and not injected. Cornea within normal limits. Periorbital areas with no swelling, redness, or edema. ENT: Nares patent. No nasal discharge, no septal abnormalities noted. Tympanic membranes are normal and external auditory canals are clear. Oropharynx with no redness, swelling, or masses, exudates, or evidence of obstruction, uvula midline. Mucous membranes moist. Neck: Trachea midline, no thyromegaly or masses palpated, and no cervical lymphadenopathy. Supple, full range of motion without nuchal rigidity, or vertebral point tenderness. No Meningismus. Chest/axilla: Normal chest wall appearance and motion. Nontender with no deformity. No lesions are appreciated. Cardiovascular: Regular rate and rhythm with a normal S1 and S2. No gallops, murmurs, or rubs. Normal PMI, no JVD. No pulse deficits. Respiratory: Lungs have equal breath sounds bilaterally, clear to auscultation and percussion. No rales, rhonchi or wheezes noted. No increased work of breathing, no retractions or nasal flaring. Abdomen/GI: Soft, non-tender, with normal bowel sounds. No distension or tympany. No guarding or rebound. No evidence of tenderness throughout. Skin: Warm, dry with normal turgor. Normal color with no rashes, no lesions, and no evidence of cellulitis. MS/ Extremity: Pulses equal, no cyanosis. Neurovascular intact. Full, normal range of motion. Neuro: Awake and alert, GCS 15, oriented to person, place, time, and situation. Cranial nerves II-XII grossly intact. Motor strength 5/5 in all extremities. Sensory grossly intact. Cerebellar exam normal. Normal gait. Vital Signs: 06:41 BP 160 / 81; Pulse 104; Resp 18 S; Temp 98.4(O); Pulse Ox 99% on R/A; Weight 81.65 kg bb (R); Height 5 ft. 4 in. (162.56 cm) (R); Pain 10/10; 08:09 BP 156 / 69; Pulse 98; Resp 16; Pulse Ox 96% ; bp 10:10 BP 151 / 72; Pulse 98; Resp 17; Pulse Ox 98% ; bp 11:06 BP 141 / 94; Pulse 100; Resp 17; Pulse Ox 100% ; bp 11:54 BP 141 / 79; Pulse 108; Resp 17; Pulse Ox 92% on R/A; bp 06:41 Body Mass Index 30.90 (81.65 kg, 162.56 cm) bb MDM: 07:03 Patient medically screened. ma2 08:47 Differential diagnosis: cholecystitis, diverticulitis, gastritis, gastroesophageal ma2 reflux disease. 09:15 Data reviewed: vital signs, nurses notes. nd2 09:18 Counseling: I had a detailed discussion with the patient and/or guardian regarding: the [facility] historical points, exam findings, and any diagnostic results supporting the discharge/admit diagnosis, the presence of at least one elevated blood pressure reading (>120/80) during this emergency department visit, the need for outpatient follow up. Response to treatment: the patient's symptoms have markedly improved after treatment. 11:14 ED course: patient has epigastric abd pain and vomiting, n ochest pain, she did had ma2 that before, all her symptoms has resolved now. she want to go home. ct shoes small hiatal hernia, us ruq unremarkable although it did not cross over to this chart. urine is wnll. . 11:39 ED course: . ma2 11:53 ED course: patient had abd pain again and she would like to be admitted, diiscussed ma2 with dr. conklin. 08/22 07:27 Order name: Basic Metabolic Panel [facility] 08/22 07:27 Order name: CBC with Diff [facility] 08/22 07:27 Order name: Hepatic Function [facility] 08/22 07:27 Order name: Lipase [facility] 08/22 07:28 Order name: Troponin (emerg Dept Use Only); Complete Time: 09:18 [facility] 08/22 07:28 Order name: Basic Metabolic Panel; Complete Time: 09:18 [facility] 08/22 07:27 Order name: CT Abd/Pelvis - IV Contrast Only; Complete Time: 09:18 [facility] 08/22 07:28 Order name: Liver (Hepatic) Function; Complete Time: 09:18 ED[facility] 08/22 07:28 Order name: Lipase; Complete Time: 09:18 [facility] 08/22 07:28 Order name: CBC with Automated Diff; Complete Time: 09:18 [facility] 08/22 07:55 Order name: Urine Dipstick--Ancillary (enter results); Complete Time: 09:18 bd 08/22 08:42 Order name: CREATININE WHOLE BLOOD; Complete Time: 09:18 EDMS 08/22 13:31 Order name: COVID-19 : Document "Date of Symptom Onset" if Symptomatic. bd 08/22 14:53 Order name: SARS-COV-2 RT PCR; Complete Time: 15:27 [facility] 08/22 07:27 Order name: IV Saline Lock; Complete Time: 08:07 nd2 08/22 07:27 Order name: Labs collected and sent; Complete Time: 08:07 nd2 08/22 07:27 Order name: Urine Dipstick-Ancillary (obtain specimen); Complete Time: 07:57 nd2 08/22 07:28 Order name: EKG - Nurse/Tech; Complete Time: 07:30 nd2 08/22 08:49 Order name: US Abdomen Limited; Complete Time: 11:13 ma2 Administered Medications: 08:07 Drug: morphine 4 mg Route: IVP; Site: right wrist; bp 09:44 Follow up: Response: Pain is decreased bp 08:08 Drug: Zofran (Ondansetron) 4 mg Route: IVP; Site: right wrist; bp 09:44 Follow up: Response: No adverse reaction bp 08:08 Drug: NS 0.9% 1000 ml Route: IV; Rate: 1 bolus; Site: right wrist; bp 17:26 Follow up: IV Status: Completed infusion; IV Intake: 1000ml bp 09:15 Drug: Rocephin (cefTRIAXone) 1 grams Route: IV; Rate: calculated rate; Site: right bp wrist; 11:55 Follow up: IV Status: Completed infusion; IV Intake: 50ml bp 09:15 Drug: Flagyl 500 mg Volume: 100 ml; Route: IVPB; Rate: 200 ml/hr; Infused Over: 30 bp mins; Site: right wrist; 11:55 Follow up: IV Status: Completed infusion; IV Intake: 100ml bp 11:45 Drug: GI Cocktail without - (Maalox Suspension 30 ml, Lidocaine Liquid 2 % 15 bp ml) Route: PO; 13:42 Follow up: Response: No adverse reaction bp 11:45 Drug: Dilaudid (HYDROmorphone) 1 mg Route: IVP; Site: right wrist; bp 13:41 Follow up: Response: Pain is decreased bp 11:45 Drug: Promethazine 12.5 mg Route: IVP; Site: right wrist; bp 13:41 Follow up: Response: No adverse reaction bp Disposition: 03/29/21 11:55 Hospitalization ordered by Arthur Means for Observation. Preliminary diagnosis are Epigastric abdominal tenderness, Upper abdominal pain, unspecified. - Bed requested for Telemetry/MedSurg (observation). - Status is Observation. bp - Condition is Stable. - Problem is new. - Symptoms are unchanged. Signatures: Dispatcher [employer] EDMS Tabatha Holm RN RN Shanthi Hurtado RN RN Cheikh Ocampo, BRAND ACTIVATION MANAGER-C BRAND ACTIVATION MANAGER-Cla1 Rolf Arroyo RN RN bp Richard Mao MD MD ma2 Corrections: (The following items were deleted from the chart) 10:43 07:09 Home Meds: Unable to obtain; bp bp 11:54 11:16 08/22/2020 11:16 Discharged to Home. Impression: Upper abdominal pain, ma2 unspecified. Condition is Stable. Forms are Medication Reconciliation Form, Thank You Letter, Antibiotic Education, Prescription Opioid Use. Follow up: Sawyer Cordoba; When: Tomorrow; Reason: If symptoms return, Continuance of care. Follow up: Nii Connell; When: Tomorrow; Reason: If symptoms return. ma2 16:35 11:55 Hospitalization Ordered by Arthur Means for Observation. Preliminary diagnosis dw is Epigastric abdominal tenderness; Upper abdominal pain, unspecified. Bed requested for Telemetry/MedSurg (observation). Status is Observation. Condition is Stable. Problem is new. Symptoms are unchanged. ma2 17:52 16:35 08/22/2020 11:55 Hospitalization Ordered by Arthur Means for Observation. bp Preliminary diagnosis is Epigastric abdominal tenderness; Upper abdominal pain, unspecified. Bed requested for Telemetry/MedSurg (observation). Status is Observation. Condition is Stable. Problem is new. Symptoms are unchanged. dw
[2020-08-22] MEDS ORDERED: HYDROMORPHONE HCL 1 MG/ML INJ ONE (11:56)
[2020-08-22] MEDS ORDERED: LIDOCAINE VISCOUS 2% SOLN 15 ML UDC ONE (11:56)
[2020-08-22] MEDS ORDERED: PROMETHAZINE INJ 25 MG/ML AMP ONE (11:56)
[2020-08-22] MEDS ORDERED: MAGNES/ALUMIN/SIMET 30ML UCUP ONE (11:56)
--- NOTE | 2020-08-22 16:35 | P.HP ---
Certification for Inpatient Patient admitted to: Observation With expected LOS: <2 Midnights Practitioner: I am a practitioner with admitting privileges, knowledge of patient current condition, hospital course, and medical plan of care. Services: Services provided to patient in accordance with Admission requirements found in Title 42 Section 412.3 of the Code of Federal Regulations Patient History Date of Service: 08/22/20 Reason for admission: Epigastric pain History of Present Illness: 74-year-old woman with a history hypertension, gastritis presented to the emergency department with a complaint of sudden onset epigastric pain which occurred last night. Patient stated the pain woke her up from sleep. She took Aleve for pain during the day. She reports associated dry heaving and vomiting. Patient denies any melena, no hematochezia. She stated the vomit is mostly clear but sometimes brown in color, did not see blood in it. Workup in the emergency department is unremarkable except mild hypokalemia. CT abdomen and pelvis shows hiatal hernia, and small gallbladder slurred. Patient suspected to have NSAID induced gastritis. She is hospitalized for further management. Allergies No Known Allergies Allergy (Verified 04/27/14 11:27) Home Medications: Amlodipine [Norvasc] 10 mg PO DAILY 03/12/18 Irbesartan [Avapro] 300 mg PO DAILY 03/12/18 - Past Medical/Surgical History -: Hypertension -: Gastritis -: section -: Hysterectomy - Family History Family History: Reviewed- Non-Contributory - Social History Smoking Status: Never smoker Alcohol use: No CD- Drugs: No Place of Residence: Home Review of Systems Other: Except as documented, all other systems reviewed and negative. Physical Examination - Physical Exam General: Alert, In no apparent distress, Oriented x3 HEENT: PERRLA, Mucous membr. moist/pink, EOMI, Sclerae nonicteric Neck: Supple, JVD not distended Respiratory: Clear to auscultation bilaterally, Normal air movement Cardiovascular: No edema, Regular rate/rhythm, Normal S1 S2 Gastrointestinal: Normal bowel sounds, Soft and benign, Non-distended, Tenderness Musculoskeletal: No swelling, No tenderness Integumentary: No rashes, No erythema Neurological: Normal speech, Normal strength at 5/5 x4 extr, Cranial nerves 3-12 intact - Studies Laboratory Data (last 24 hrs) 08/22/20 08:02: WBC 8.60, Hgb 13.1, Hct 40.3, Plt Count 284 08/22/20 08:02: Sodium 140, Potassium 3.3 L, BUN 14, Creatinine 0.83, Glucose 112 H, Total Bilirubin 0.4, AST 25, ALT 34, Alkaline Phosphatase 83, Lipase 52 L Assessment and Plan - Problems (Diagnosis) (1) Gastritis Current Visit: Yes Status: Acute (2) Epigastric pain Current Visit: Yes Status: Acute (3) Essential hypertension Current Visit: Yes Status: Acute - Plan Place under observation. Hydrate with IV normal saline. Start IV Protonix. Wants H&H IV morphine p.r.n. for pain. Continue home antihypertensives. Patient has been told to avoid NSAIDs. Consult to GI-Dr. Cordoba. - Advance Directives Does patient have a Living Will: No Does patient have a Durable POA for Healthcare: No
[2020-08-22] MEDS ORDERED: ONDANSETRON 4 MG/2 ML VIAL IV PRN (17:08)
[2020-08-22] MEDS ORDERED: MORPHINE 2 MG/ML SYR IV PRN (17:08)
[2020-08-22] MEDS ORDERED: SODIUM CHLORIDE 0.9% 10ML INJ IV PRN (17:08)
[2020-08-22] MEDS: NA CHLORIDE 0.9% 1,000 ML IV SCH (17:53)
[2020-08-22 18:33] VITALS: BMI 32.7
[2020-08-22] MEDS ORDERED: PNEUMOCOCCAL VACCINE 0.5 ML IMVAC ONE (19:00)
[2020-08-22] MEDS: PANTOPRAZOLE 40 MG INJ IVP SCH (20:29)
[2020-08-23] MEDS: NA CHLORIDE 0.9% 1,000 ML IV SCH ×2 (02:59→13:18)
[2020-08-23 05:56] LABS: Absolute Lymphocytes (CBC) 1.7 K/uL (0.7-4.9); Basophils % 0.8 % (0-1.3); Hematocrit 35.4 % (36.0-45.0); Lymphocytes % 23.5 % (15.3-44.8); RBC Red Blood Cell Count 3.88 M/uL (3.86-4.86)
[2020-08-23 06:11] LABS: ALT/SGPT 24 U/L (12-78); AST/SGOT 24 U/L (15-37); Albumin 3.4 g/dL (3.4-5.0); Alkaline Phosphatase 73 U/L (45-117); BUN Blood Urea Nitrogen 10 mg/dL (7-18); Bicarbonate 29 mmol/L (21-32); Bilirubin Total 0.5 mg/dL (0.2-1.0); Glucose Level 89 mg/dL (74-106); Potassium 3.4 mmol/L (3.5-5.1); Protein, Total 7.4 g/dL (6.4-8.2); Sodium Level 144 mmol/L (136-145)
[2020-08-23] MEDS ORDERED: POTASSIUM 25 MEQ EFFERV TAB PO ONE (06:22)
[2020-08-23] MEDS: PANTOPRAZOLE 40 MG INJ IVP SCH (09:38)
[2020-08-23] MEDS ORDERED: AMLODIPINE 10 MG TAB PO SCH (11:00)
[2020-08-23] MEDS ORDERED: IRBESARTAN 150 MG TAB PO SCH (11:00)
--- NOTE | 2020-08-23 12:57 | EKG ---
Test Date: 2020-08-22 Test Time: 06:50:45 Retirement Benefits Specialist: DALE MEASUREMENT RESULTS: Intervals: Rate: 100 MS: 180 QRSD: 70 QT: 334 QTc: 430 [place]: P: 56 MS: 180 QRS: 67 T: 39 INTERPRETIVE STATEMENTS: Normal sinus rhythm Nonspecific T wave abnormality Abnormal ECG Compared to ECG 03/25/2018 12:18:28 T-wave abnormality now present Myocardial infarct finding no longer present Electronically Signed On 08-23-20 12:52:59 CDT by Joseph Drummond
[2020-08-23 14:59] VITALS: O2SAT 95
[2020-08-23 15:29] VITALS: TEMP 98.1
--- NOTE | 2020-08-23 17:38 | P.DS ---
Admission Date: 08/22/20 Discharge Date: 08/23/20 Disposition: ROUTINE DISCHARGE Discharge Condition: GOOD Reason for Admission: Epigastric pain Consultations: GI - Dr. Cordoba Procedures: CT Abd/Pelvis (08/22): Contrast enhanced CT abdomen and pelvis showing no acute or emergent finding. Small hiatal hernia is present. No gross abnormality of the stomach or distal esophagus. Mucosal level ulceration or small mass lesion can be occult on CT imaging Abd U/S (08/22): No gallstones or significant gallbladder finding. Patient may have a trace amount of sludge in the gallbladder lumen. No biliary tree abnor mality seen. Problem List: Gastritis Epigastric pain Essential hypertension Brief History of Present Illness: 74yo F, PMH: HTN, gastritis who presented to ED with suddent onset epigastric pain the night prior. Pain woke her up from sleep, radiated somewhat to her back. Associated with a feeling of a lump stuck in her upper abdomen / lower chest after eating something. She took Aleve for pain during the day. She reports associated dry heaving and vomiting. Patient denies any melena, no hematochezia. She stated the vomit is mostly clear but sometimes brown in color, did not see blood in it. Workup in the emergency department is unremarkable except mild hypokalemia. CT abdomen and pelvis shows hiatal hernia. Patient suspected to have NSAID induced gastritis. She is hospitalized for further management. Hospital Course: She was started on IVF, IV protonix, and maintained on a clear liquid diet. She had improvement of her symptoms - pain resolved but still had a sensation of a "lump" in her lower chest / upper abdomen after eating. GI was consulted and recommended further evaluation with EGD. Since the patient had improvement, it was recommended that she have the EGD completed as an outpatient. She was discharged home on 40mg BID protonix x2 weeks, then daily. She was advised to continue a full liquid diet for the next 3-5 days, followed by slow advancement. She will f/u with Dr. Cordoba in ~1-2 weeks for EGD. She was advised to stop NSAIDs Vital Signs/Physical Exam: Temp Pulse Resp BP Pulse Ox 98.1 F 84 18 173/79 H 100 08/23/20 12:00 08/23/20 12:08/23/20 12:08/23/20 12:00 08/23/20 12:00 General: Alert, In no apparent distress, Oriented x3 HEENT: Sclerae nonicteric Respiratory: Clear to auscultation bilaterally, Normal air movement Cardiovascular: No edema, Regular rate/rhythm Gastrointestinal: Soft and benign, Non-distended, No tenderness, No masses Musculoskeletal: No tenderness Integumentary: No rashes Neurological: Normal speech, Normal affect Laboratory Data at Discharge: WBC 7.30 K/uL (4.3-10.9) D 08/23/20 05:38 Hgb 11.8 g/dL (12.0-15.0) L 08/23/20 05:38 Hct 35.4 % (36.0-45.0) L 08/23/20 05:38 Plt Count 251 K/uL (152-406) 08/23/20 05:38 Sodium 144 mmol/L (136-145) 08/23/20 05:38 Potassium 3.8 mmol/L (3.5-5.1) 08/23/20 13:24 BUN 10 mg/dL (7-18) 08/23/20 05:38 Creatinine 0.73 mg/dL (0.55-1.3) 08/23/20 05:38 Glucose 89 mg/dL (74-106) 08/23/20 05:38 Total Bilirubin 0.5 mg/dL (0.2-1.0) 08/23/20 05:38 AST 24 U/L (15-37) 08/23/20 05:38 ALT 24 U/L (12-78) 08/23/20 05:38 Alkaline Phosphatase 73 U/L (45-117) 08/23/20 05:38 Lipase 52 U/L (73-393) L 08/22/20 08:02 Home Medications: RX: Amlodipine [Norvasc*] 10 mg PO DAILY 03/12/18 RX: Irbesartan [Avapro] 300 mg PO DAILY 03/12/18 RX: Atorvastatin Calcium [Lipitor*] 10 mg PO BEDTIME 08/22/20 RX: Vit C/E/Zn/Coppr/Lutein/Zeaxan [Preservision Areds 2 Softgel] 1 tab PO DAILY 08/22/20 RX: hydroCHLOROthiazide [Hydrochlorothiazide] 12.5 mg PO DAILY 08/22/20 RX: Pantoprazole [Protonix Tab*] 40 mg PO SEECOM 30 Days #60 tab 08/23/20 New Medications: RX: Pantoprazole [Protonix Tab*] 40 mg PO SEECOM 30 Days #60 tab Physician Discharge Instructions: Your pain / symptoms improved with protonix (pantoprazole) which is an antacid. You are recommended to follow up with Dr. Cordoba (GI) to have an EGD (scope) in 1-2 weeks. You are discharged with a prescription for pantoprazole pills. You can take tums in addition if you have worsening pain. You should continue with full liquid diet for 3-5 days and can slowly advance to soft / more regular food as you can tolerate it. Follow up with PCP within 3-5 days. Diet: Turner (full liquid diet) Activity: Ad nuzhat Followup: Nii Connell, [Primary Care Provider] - Sawyer Cordoba MD [ACTIVE - CAN ADMIT] - Time spent managing pt's care (in minutes): 35
[2020-08-23 18:30] VITALS: BP 156/73
[2020-08-23] MEDS ORDERED: PNEUMOCOCCAL VACCINE 0.5 ML IMVAC ONE (19:00)
[2020-08-23] MEDS ORDERED: ATORVASTATIN 10 MG TAB PO SCH (21:00)
== END 2020-08-23 19:54 | disposition home or self-care (01) ==
LOC: ER 06:26 → ERHOLD 13:30 → 2ND 17:24
PROVIDERS: ADMIT Internal Medicine; ATTEND Hospitalist
DX: K29.70 Gastritis, unspecified, without bleeding (principal); K44.9 Diaphragmatic hernia without obstruction or gangrene; I10 Essential (primary) hypertension; E87.6 Hypokalemia; K21.9 Gastro-esophageal reflux disease without esophagitis; Z90.710 Acquired absence of both cervix and uterus; Z20.822 Contact with and (suspected) exposure to COVID-19
CPT/HCPCS: 96365; 96361; 96368; 93005; 85025 ×2; 80048; 36415; 84132; 82565; 80076; 81003; 84484; 83690; 80053; 74177; 76705; 94760 ×2; 96375; 99285; 96366; U0003; Q9967; J2550; C9113 ×2; J1170; J0696; J7030 ×4; J2405; G0378 ×3

== ENCOUNTER 2023-04-25 11:55 | Emergency (ER) | payer OTHER ==
--- OUTSIDE RECORDS SUMMARY | 2023-04-25 12:15 | XMS REPORT | Continuity of Care Document ---
:[address] [facility] t Address [address] [place] [address] [place] [id number] Care Team Providers Name Role Phone BARBARA CONNELL Primary Care Physician Unavailable Barbara Connell Attending Clinician Unavailable TYRELL CLEMENTS Attending Clinician Unavailable Ana OJEDA, Chelsy Jeff Attending Clinician Tyrell Clements MD Attending Clinician TYRELL CLEMENTS Admitting Clinician Unavailable Payers Payer Name Policy Type Policy Number Effective Date Expiration Date Katina pablo AARP Medicare 53 [id number] 2021 [facility] Complete 00:00:00 [facility] NATHALIA/RORY [id number] 2022 MEDICARE 00:00:00 ADVANTAGE MEDICARE MB [id number] [facility] MEDICARE MB [id number] [facility] Problems Condition Condition Condition Status Onset Resolution Last Treating Co mments Source Name Details Category Date Date Treatment Clinician Date [id number] Other Problem Common obesity Spirit due to - [facility] excess [facility] Chronic +5th digit Problem Comm on kidney eff Spirit disease 02/25/20*CK - [facility]I stage 3 D (chronic kidney [facility] disease) Medical stage 3, Center GFR 30-59 ml/min Essential Benign Problem Common hypertensi essential Spi rit on HTN [facility] [id number] PAD Problem Common (periphera Spirit l artery - CHI disease) [facility] [id number] Other Problem Common gastritis [facility] without - [facility] bleeding [facility] Allergic Allergic Problem Commo n rhinitis rhinitis [facility] Mixed Hyperlipem Problem Commo n hyperlipid ia, mixed Spi rit emia [facility] Gastro-eso Gastro-eso Problem C ommon phageal phageal [facility] reflux reflux - [facility] disease disease [facility] without [facility] esophagiti esophagiti Me dical [facility] [phone] Adult BMI Problem Com mon 33.0-33.9 Spirit kg/sq - [facility] Chronic Stage 3a Problem Common kidney chronic [facility] disease kidney - [facility]I stage 3A disease [facility] Allergies, Adverse Reactions, Alerts Allergy Allergy Status Severity Reaction(s) Onset Inactive Treating Comm ents Source Name Type Date Date Clinician IBUPROFE DRUG Active Rash Univers N INGREDI 10-27 ity of 00:00: [place] 00 Medical Branch Ibuprofe Propensi Active Rash Univer s n ty to 10-27 ity of adverse 00:00: [place] reaction Medical s Branch Social History Social Habit Start Date Stop Date Quantity Comments Source History of Tobacco [facility] - [facility] Use [facility] Medic nm Center Sex Assigned At [address] 1945 [facility] 00:00:00 00:00:00 Medical Branch Smoking Status Start Date Stop Date Source Tobacco smoking consumption [facility] unknown Branch Never Smoker [facility] - [facility] Medications Ordered Filled Start Stop Current Ordering Indication Dosage Frequency Signature Comments Components Source Medication Medication Date Date Medication? Clinician (SIG) Name Name acetaminoph 2022- No 650mg 650 mg, U nivers en 10-28 06-04 Oral, ity of (TYLENOL) 02:30: 02:23 [place] 650 00 :00 dose, On Medic al mg 10/27/22 Branch at 2130, BRYON fosamax fosamax 2021- No 1{table fosamax 35mg 35mg 14 07-13 t} 35mg 00:00: 00:00 00 :00 fosamax fosamax 2021- No 1{table fosamax 35mg 35mg 4-14 07-13 t} 35mg 00:00: 00:00 00 :00 Aspir-Low Aspir-Low 2020-0 Yes Barbara 1 tablet Common 1-20 Connell [facility] 00:00: - [facility] 00 [facility] Aspir-Low Aspir-Low 2020-0 No 1{table QD Aspir-Low 81 MG 81 MG 1-20 t} 81 MG 00:00: 00 Aspir-Low Aspir-Low 2020-0 No 1{table QD Aspir-Low 81 MG 81 MG 1-20 t} 81 MG 00:00: 00 Aspir-Low Aspir-Low 2020-0 No 1{table QD Aspir-Low 81 MG 81 MG 1-20 t} 81 MG 00:00: 00 Aspir-Low Aspir-Low 2020-0 No 1{table QD Aspir-Low 81 MG 81 MG 1-20 t} 81 MG 00:00: 00 Aspir-Low Aspir-Low 2020-0 No 1{table QD Aspir-Low 81 MG 81 MG 1-20 t} 81 MG 00:00: 00 Aspir-Low Aspir-Low 2020-0 No 1{table QD Aspir-Low 81 MG 81 MG 1-20 t} 81 MG 00:00: 00 Aspir-Low Aspir-Low 2020-0 No 1{table QD Aspir-Low 81 MG 81 MG 1-20 t} 81 MG 00:00: 00 Aspir-Low Aspir-Low 2020-0 No 1{table QD Aspir-Low 81 MG 81 MG 1-20 t} 81 MG 00:00: 00 Aspir-Low Aspir-Low 2020-0 No 1{table QD Aspir-Low 81 MG 81 MG 1-20 t} 81 MG 00:00: 00 Aspir-Low Aspir-Low 2020-0 No 1{table QD Aspir-Low 81 MG 81 MG 1-20 t} 81 MG 00:00: 00 Aspir-Low Aspir-Low 2020-0 No 1{table QD Aspir-Low 81 MG 81 MG 1-20 t} 81 MG 00:00: 00 Aspir-Low Aspir-Low 2020-0 No 1{table QD Aspir-Low 81 MG 81 MG 1-20 t} 81 MG 00:00: 00 Aspir-Low Aspir-Low 2020-0 No 1{table QD Aspir-Low 81 MG 81 MG 1-20 t} 81 MG 00:00: 00 Aspir-Low Aspir-Low 2020-0 No 1{table QD Aspir-Low 81 MG 81 MG 1-20 t} 81 MG 00:00: 00 Atorvastati Atorvastati 2018- Yes Barbara TAKE 1 Common n Calcium n Calcium 0-17 Connell TABLET BY Spirit 00:00: MOUTH ONCE - CHI 00 DAILY [facility] Dexilant Dexilant 2019-0 Yes Barbara 1 capsule Common 7-17 Connell [facility] 00:00: - [facility] 00 [facility] Norvasc Norvasc Yes Barbara TAKE 1 Commo n Connell TABLET BY Spirit MOUTH ONCE - CHI DAILY [facility] Irbesartan Irbesartan Yes Barbara 1 tablet Common Connell [facility] - [facility] Cromolyn Cromolyn Yes Barbara 1 spray in Common Sodium Sodium Connell each Spirit nostril - CHI [facility] Hydrochloro Hydrochloro Yes Barbara 1 tablet Common thiazide thiazide Connell in the Spir it morning CHI [facility] hydroCHLORO hydroCHLORO No 1{table QD hydroCHLOR thiazide thiazide t_in_th Othiazide 12.5 MG 12.5 MG e_morni 12.5 MG ng} Atorvastati Atorvastati No 1{table QD Atorvastat n Calcium n Calcium t} in Calcium 10 MG 10 MG 10 MG Norvasc 10 Norvasc 10 No Norvasc 10 MG MG MG Pantoprazol Pantoprazol No 1{table QD Pantoprazo e Sodium 40 e Sodium 40 t} le Sodium MG MG 40 MG Norvasc 10 Norvasc 10 No 1{table QD Norvasc 10 MG MG t} MG Atorvastati Atorvastati No Atorvastat n Calcium n Calcium in Calcium 10 MG 10 MG 10 MG Irbesartan Irbesartan No Irbesartan 300 MG 300 MG 300 MG Stool Stool No Stool Softener Softener Softener Dulcolax Dulcolax No Dulcolax hydroCHLORO hydroCHLORO No hydroCHLOR thiazide thiazide Othiazide 12.5 MG 12.5 MG 12.5 MG Cromolyn Cromolyn No 1{spray TID Cromolyn Sodium 5.2 Sodium 5.2 _in_eac Sodium 5.2 MG/ACT MG/ACT h_nostr MG/ACT il} Irbesartan Irbesartan No 1{table QD Irbesartan 300 MG 300 MG t} 300 MG PreserVisio PreserVisio No PreserVisi n AREDS 2 n AREDS 2 on AREDS 2 amLODIPine amLODIPine No amLODIPine Besylate 10 Besylate 10 Besylate MG MG 10 MG Pantoprazol Pantoprazol No Pantoprazo e Sodium 40 e Sodium 40 le Sodium MG MG 40 MG amLODIPine amLODIPine No amLODIPine Besylate 10 Besylate 10 Besylate MG MG 10 MG PreserVisio PreserVisio No PreserVisi n AREDS 2 n AREDS 2 on AREDS 2 Cromolyn Cromolyn No 1{spray TID Cromolyn Sodium 5.2 Sodium 5.2 _in_eac Sodium 5.2 MG/ACT MG/ACT h_nostr MG/ACT il} Stool Stool No Stool Softener Softener Softener Irbesartan Irbesartan No Irbesartan 300 MG 300 MG 300 MG Atorvastati Atorvastati No Atorvastat n Calcium n Calcium in Calcium 10 MG 10 MG 10 MG Norvasc 10 Norvasc 10 No Norvasc 10 MG MG MG hydroCHLORO hydroCHLORO No hydroCHLOR thiazide thiazide Othiazide 12.5 MG 12.5 MG 12.5 MG Pantoprazol Pantoprazol No Pantoprazo e Sodium 40 e Sodium 40 le Sodium MG MG 40 MG Dulcolax Dulcolax No Dulcolax Pantoprazol Pantoprazol No 1{table QD Pantoprazo e Sodium 40 e Sodium 40 t} le Sodium MG MG 40 MG Dulcolax Dulcolax No Dulcolax Pantoprazol Pantoprazol No Pantoprazo e Sodium 40 e Sodium 40 le Sodium MG MG 40 MG Pantoprazol Pantoprazol No 1{table QD Pantoprazo e Sodium 40 e Sodium 40 t} le Sodium MG MG 40 MG PreserVisio PreserVisio No PreserVisi n AREDS 2 n AREDS 2 on AREDS 2 Stool Stool No Stool Softener Softener Softener Norvasc 10 Norvasc 10 No 1{table QD Norvasc 10 MG MG t} MG Atorvastati Atorvastati No 1{table QD Atorvastat n Calcium n Calcium t} in Calcium 10 MG 10 MG 10 MG hydroCHLORO hydroCHLORO No hydroCHLOR thiazide thiazide Othiazide 12.5 MG 12.5 MG 12.5 MG Irbesartan Irbesartan No 1{table QD Irbesartan 300 MG 300 MG t} 300 MG Atorvastati Atorvastati No Atorvastat n Calcium n Calcium in Calcium 10 MG 10 MG 10 MG Norvasc 10 Norvasc 10 No Norvasc 10 MG MG MG amLODIPine amLODIPine No amLODIPine Besylate 10 Besylate 10 Besylate MG MG 10 MG hydroCHLORO hydroCHLORO No 1{table QD hydroCHLOR thiazide thiazide t_in_th Othiazide 12.5 MG 12.5 MG e_morni 12.5 MG ng} Cromolyn Cromolyn No 1{spray TID Cromolyn Sodium 5.2 Sodium 5.2 _in_eac Sodium 5.2 MG/ACT MG/ACT h_nostr MG/ACT il} Irbesartan Irbesartan No Irbesartan 300 MG 300 MG 300 MG Irbesartan Irbesartan No Irbesartan 300 MG 300 MG 300 MG Atorvastati Atorvastati No 1{table QD Atorvastat n Calcium n Calcium t} in Calcium 10 MG 10 MG 10 MG PreserVisio PreserVisio No PreserVisi n AREDS 2 n AREDS 2 on AREDS 2 Pantoprazol Pantoprazol No 1{table QD Pantoprazo e Sodium 40 e Sodium 40 t} le Sodium MG MG 40 MG Atorvastati Atorvastati No Atorvastat n Calcium n Calcium in Calcium 10 MG 10 MG 10 MG amLODIPine amLODIPine No amLODIPine Besylate 10 Besylate 10 Besylate MG MG 10 MG Stool Stool No Stool Softener Softener Softener Irbesartan Irbesartan No 1{table QD Irbesartan 300 MG 300 MG t} 300 MG Pantoprazol Pantoprazol No Pantoprazo e Sodium 40 e Sodium 40 le Sodium MG MG 40 MG Alendronate Alendronate No Alendronat Sodium 35 Sodium 35 e Sodium MG MG 35 MG hydroCHLORO hydroCHLORO No 1{table QD hydroCHLOR thiazide thiazide t_in_th Othiazide 12.5 MG 12.5 MG e_morni 12.5 MG ng} Norvasc 10 Norvasc 10 No 1{table QD Norvasc 10 MG MG t} MG Dulcolax Dulcolax No Dulcolax Cromolyn Cromolyn No 1{spray TID Cromolyn Sodium 5.2 Sodium 5.2 _in_eac Sodium 5.2 MG/ACT MG/ACT h_nostr MG/ACT il} hydroCHLORO hydroCHLORO No hydroCHLOR thiazide thiazide Othiazide 12.5 MG 12.5 MG 12.5 MG Irbesartan Irbesartan No Irbesartan 300 MG 300 MG 300 MG Atorvastati Atorvastati No 1{table QD Atorvastat n Calcium n Calcium t} in Calcium 10 MG 10 MG 10 MG PreserVisio PreserVisio No PreserVisi n AREDS 2 n AREDS 2 on AREDS 2 Pantoprazol Pantoprazol No 1{table QD Pantoprazo e Sodium 40 e Sodium 40 t} le Sodium MG MG 40 MG Atorvastati Atorvastati No Atorvastat n Calcium n Calcium in Calcium 10 MG 10 MG 10 MG amLODIPine amLODIPine No amLODIPine Besylate 10 Besylate 10 Besylate MG MG 10 MG Stool Stool No Stool Softener Softener Softener Irbesartan Irbesartan No 1{table QD Irbesartan 300 MG 300 MG t} 300 MG Pantoprazol Pantoprazol No Pantoprazo e Sodium 40 e Sodium 40 le Sodium MG MG 40 MG Alendronate Alendronate No Alendronat Sodium 35 Sodium 35 e Sodium MG MG 35 MG hydroCHLORO hydroCHLORO No 1{table QD hydroCHLOR thiazide thiazide t_in_th Othiazide 12.5 MG 12.5 MG e_morni 12.5 MG ng} Norvasc 10 Norvasc 10 No 1{table QD Norvasc 10 MG MG t} MG Dulcolax Dulcolax No Dulcolax Cromolyn Cromolyn No 1{spray TID Cromolyn Sodium 5.2 Sodium 5.2 _in_eac Sodium 5.2 MG/ACT MG/ACT h_nostr MG/ACT il} hydroCHLORO hydroCHLORO No hydroCHLOR thiazide thiazide Othiazide 12.5 MG 12.5 MG 12.5 MG Norvasc 10 Norvasc 10 No 1{table QD Norvasc 10 MG MG t} MG Pantoprazol Pantoprazol No 1{table QD Pantoprazo e Sodium 40 e Sodium 40 t} le Sodium MG MG 40 MG amLODIPine amLODIPine No amLODIPine Besylate 10 Besylate 10 Besylate MG MG 10 MG PreserVisio PreserVisio No PreserVisi n AREDS 2 n AREDS 2 on AREDS 2 Cromolyn Cromolyn No 1{spray TID Cromolyn Sodium 5.2 Sodium 5.2 _in_eac Sodium 5.2 MG/ACT MG/ACT h_nostr MG/ACT il} Pantoprazol Pantoprazol No 1{table QD Pantoprazo e Sodium 40 e Sodium 40 t} le Sodium MG MG 40 MG Atorvastati Atorvastati No 1{table QD Atorvastat n Calcium n Calcium t} in Calcium 10 MG 10 MG 10 MG hydroCHLORO hydroCHLORO No 1{table QD hydroCHLOR thiazide thiazide t_in_th Othiazide 12.5 MG 12.5 MG e_morni 12.5 MG ng} Atorvastati Atorvastati No 1{table QD Atorvastat n Calcium n Calcium t} in Calcium 10 MG 10 MG 10 MG Irbesartan Irbesartan No 1{table QD Irbesartan 300 MG 300 MG t} 300 MG Dulcolax Dulcolax No Dulcolax Alendronate Alendronate No Alendronat Sodium 35 Sodium 35 e Sodium MG MG 35 MG Irbesartan Irbesartan No 1{table QD Irbesartan 300 MG 300 MG t} 300 MG Stool Stool No Stool Softener Softener Softener hydroCHLORO hydroCHLORO No 1{table QD hydroCHLOR thiazide thiazide t_in_th Othiazide 12.5 MG 12.5 MG e_morni 12.5 MG ng} hydroCHLORO hydroCHLORO No 1{table QD hydroCHLOR thiazide thiazide t_in_th Othiazide 12.5 MG 12.5 MG e_morni 12.5 MG ng} Pantoprazol Pantoprazol No Pantoprazo e Sodium 40 e Sodium 40 le Sodium MG MG 40 MG Pantoprazol Pantoprazol No 1{table QD Pantoprazo e Sodium 40 e Sodium 40 t} le Sodium MG MG 40 MG Dulcolax Dulcolax No Dulcolax Stool Stool No Stool Softener Softener Softener Cromolyn Cromolyn No 1{spray TID Cromolyn Sodium 5.2 Sodium 5.2 _in_eac Sodium 5.2 MG/ACT MG/ACT h_nostr MG/ACT il} hydroCHLORO hydroCHLORO No hydroCHLOR thiazide thiazide Othiazide 12.5 MG 12.5 MG 12.5 MG Alendronate Alendronate No Alendronat Sodium 35 Sodium 35 e Sodium MG MG 35 MG Irbesartan Irbesartan No Irbesartan 300 MG 300 MG 300 MG Atorvastati Atorvastati No 1{table QD Atorvastat n Calcium n Calcium t} in Calcium 10 MG 10 MG 10 MG amLODIPine amLODIPine No amLODIPine Besylate 10 Besylate 10 Besylate MG MG 10 MG Atorvastati Atorvastati No Atorvastat n Calcium n Calcium in Calcium 10 MG 10 MG 10 MG PreserVisio PreserVisio No PreserVisi n AREDS 2 n AREDS 2 on AREDS 2 Norvasc 10 Norvasc 10 No 1{table QD Norvasc 10 MG MG t} MG Irbesartan Irbesartan No 1{table QD Irbesartan 300 MG 300 MG t} 300 MG hydroCHLORO hydroCHLORO No 1{table QD hydroCHLOR thiazide thiazide t_in_th Othiazide 12.5 MG 12.5 MG e_morni 12.5 MG ng} Pantoprazol Pantoprazol No Pantoprazo e Sodium 40 e Sodium 40 le Sodium MG MG 40 MG Pantoprazol Pantoprazol No 1{table QD Pantoprazo e Sodium 40 e Sodium 40 t} le Sodium MG MG 40 MG Dulcolax Dulcolax No Dulcolax Stool Stool No Stool Softener Softener Softener Cromolyn Cromolyn No 1{spray TID Cromolyn Sodium 5.2 Sodium 5.2 _in_eac Sodium 5.2 MG/ACT MG/ACT h_nostr MG/ACT il} hydroCHLORO hydroCHLORO No hydroCHLOR thiazide thiazide Othiazide 12.5 MG 12.5 MG 12.5 MG Alendronate Alendronate No Alendronat Sodium 35 Sodium 35 e Sodium MG MG 35 MG Irbesartan Irbesartan No Irbesartan 300 MG 300 MG 300 MG Atorvastati Atorvastati No 1{table QD Atorvastat n Calcium n Calcium t} in Calcium 10 MG 10 MG 10 MG amLODIPine amLODIPine No amLODIPine Besylate 10 Besylate 10 Besylate MG MG 10 MG Atorvastati Atorvastati No Atorvastat n Calcium n Calcium in Calcium 10 MG 10 MG 10 MG PreserVisio PreserVisio No PreserVisi n AREDS 2 n AREDS 2 on AREDS 2 Norvasc 10 Norvasc 10 No 1{table QD Norvasc 10 MG MG t} MG Irbesartan Irbesartan No 1{table QD Irbesartan 300 MG 300 MG t} 300 MG hydroCHLORO hydroCHLORO No 1{table QD hydroCHLOR thiazide thiazide t_in_th Othiazide 12.5 MG 12.5 MG e_morni 12.5 MG ng} Pantoprazol Pantoprazol No Pantoprazo e Sodium 40 e Sodium 40 le Sodium MG MG 40 MG Pantoprazol Pantoprazol No 1{table QD Pantoprazo e Sodium 40 e Sodium 40 t} le Sodium MG MG 40 MG Dulcolax Dulcolax No Dulcolax Stool Stool No Stool Softener Softener Softener Cromolyn Cromolyn No 1{spray TID Cromolyn Sodium 5.2 Sodium 5.2 _in_eac Sodium 5.2 MG/ACT MG/ACT h_nostr MG/ACT il} hydroCHLORO hydroCHLORO No hydroCHLOR thiazide thiazide Othiazide 12.5 MG 12.5 MG 12.5 MG Alendronate Alendronate No Alendronat Sodium 35 Sodium 35 e Sodium MG MG 35 MG Irbesartan Irbesartan No Irbesartan 300 MG 300 MG 300 MG Atorvastati Atorvastati No 1{table QD Atorvastat n Calcium n Calcium t} in Calcium 10 MG 10 MG 10 MG amLODIPine amLODIPine No amLODIPine Besylate 10 Besylate 10 Besylate MG MG 10 MG Atorvastati Atorvastati No Atorvastat n Calcium n Calcium in Calcium 10 MG 10 MG 10 MG PreserVisio PreserVisio No PreserVisi n AREDS 2 n AREDS 2 on AREDS 2 Norvasc 10 Norvasc 10 No 1{table QD Norvasc 10 MG MG t} MG Irbesartan Irbesartan No 1{table QD Irbesartan 300 MG 300 MG t} 300 MG Pantoprazol Pantoprazol No 1{table QD Pantoprazo e Sodium 40 e Sodium 40 t} le Sodium MG MG 40 MG Cromolyn Cromolyn No 1{spray TID Cromolyn Sodium 5.2 Sodium 5.2 _in_eac Sodium 5.2 MG/ACT MG/ACT h_nostr MG/ACT il} Pantoprazol Pantoprazol No 1{table QD Pantoprazo e Sodium 40 e Sodium 40 t} le Sodium MG MG 40 MG hydroCHLORO hydroCHLORO No 1{table QD hydroCHLOR thiazide thiazide t_in_th Othiazide 12.5 MG 12.5 MG e_morni 12.5 MG ng} Norvasc 10 Norvasc 10 No 1{table QD Norvasc 10 MG MG t} MG Irbesartan Irbesartan No 1{table QD Irbesartan 300 MG 300 MG t} 300 MG Norvasc 10 Norvasc 10 No 1{table QD Norvasc 10 MG MG t} MG PreserVisio PreserVisio No PreserVisi n AREDS 2 n AREDS 2 on AREDS 2 Atorvastati Atorvastati No 1{table QD Atorvastat n Calcium n Calcium t} in Calcium 10 MG 10 MG 10 MG Irbesartan Irbesartan No 1{table QD Irbesartan 300 MG 300 MG t} 300 MG hydroCHLORO hydroCHLORO No 1{table QD hydroCHLOR thiazide thiazide t_in_th Othiazide 12.5 MG 12.5 MG e_morni 12.5 MG ng} Atorvastati Atorvastati No 1{table QD Atorvastat n Calcium n Calcium t} in Calcium 10 MG 10 MG 10 MG Stool Stool No Stool Softener Softener Softener Alendronate Alendronate No Alendronat Sodium 35 Sodium 35 e Sodium MG MG 35 MG Pantoprazol Pantoprazol No 1{table QD Pantoprazo e Sodium 40 e Sodium 40 t} le Sodium MG MG 40 MG Cromolyn Cromolyn No 1{spray TID Cromolyn Sodium 5.2 Sodium 5.2 _in_eac Sodium 5.2 MG/ACT MG/ACT h_nostr MG/ACT il} Pantoprazol Pantoprazol No 1{table QD Pantoprazo e Sodium 40 e Sodium 40 t} le Sodium MG MG 40 MG hydroCHLORO hydroCHLORO No 1{table QD hydroCHLOR thiazide thiazide t_in_th Othiazide 12.5 MG 12.5 MG e_morni 12.5 MG ng} Norvasc 10 Norvasc 10 No 1{table QD Norvasc 10 MG MG t} MG Irbesartan Irbesartan No 1{table QD Irbesartan 300 MG 300 MG t} 300 MG Norvasc 10 Norvasc 10 No 1{table QD Norvasc 10 MG MG t} MG PreserVisio PreserVisio No PreserVisi n AREDS 2 n AREDS 2 on AREDS 2 Atorvastati Atorvastati No 1{table QD Atorvastat n Calcium n Calcium t} in Calcium 10 MG 10 MG 10 MG Irbesartan Irbesartan No 1{table QD Irbesartan 300 MG 300 MG t} 300 MG hydroCHLORO hydroCHLORO No 1{table QD hydroCHLOR thiazide thiazide t_in_th Othiazide 12.5 MG 12.5 MG e_morni 12.5 MG ng} Atorvastati Atorvastati No 1{table QD Atorvastat n Calcium n Calcium t} in Calcium 10 MG 10 MG 10 MG Stool Stool No Stool Softener Softener Softener Alendronate Alendronate No Alendronat Sodium 35 Sodium 35 e Sodium MG MG 35 MG Pantoprazol Pantoprazol No 1{table QD Pantoprazo e Sodium 40 e Sodium 40 t} le Sodium MG MG 40 MG Cromolyn Cromolyn No 1{spray TID Cromolyn Sodium 5.2 Sodium 5.2 _in_eac Sodium 5.2 MG/ACT MG/ACT h_nostr MG/ACT il} Pantoprazol Pantoprazol No 1{table QD Pantoprazo e Sodium 40 e Sodium 40 t} le Sodium MG MG 40 MG hydroCHLORO hydroCHLORO No 1{table QD hydroCHLOR thiazide thiazide t_in_th Othiazide 12.5 MG 12.5 MG e_morni 12.5 MG ng} Norvasc 10 Norvasc 10 No 1{table QD Norvasc 10 MG MG t} MG Irbesartan Irbesartan No 1{table QD Irbesartan 300 MG 300 MG t} 300 MG Norvasc 10 Norvasc 10 No 1{table QD Norvasc 10 MG MG t} MG PreserVisio PreserVisio No PreserVisi n AREDS 2 n AREDS 2 on AREDS 2 Atorvastati Atorvastati No 1{table QD Atorvastat n Calcium n Calcium t} in Calcium 10 MG 10 MG 10 MG Irbesartan Irbesartan No 1{table QD Irbesartan 300 MG 300 MG t} 300 MG hydroCHLORO hydroCHLORO No 1{table QD hydroCHLOR thiazide thiazide t_in_th Othiazide 12.5 MG 12.5 MG e_morni 12.5 MG ng} Atorvastati Atorvastati No 1{table QD Atorvastat n Calcium n Calcium t} in Calcium 10 MG 10 MG 10 MG Stool Stool No Stool Softener Softener Softener Alendronate Alendronate No Alendronat Sodium 35 Sodium 35 e Sodium MG MG 35 MG Irbesartan Irbesartan No Irbesartan 300 MG 300 MG 300 MG Norvasc 10 Norvasc 10 No Norvasc 10 MG MG MG PreserVisio PreserVisio No PreserVisi n AREDS 2 n AREDS 2 on AREDS 2 Cromolyn Cromolyn No 1{spray TID Cromolyn Sodium 5.2 Sodium 5.2 _in_eac Sodium 5.2 MG/ACT MG/ACT h_nostr MG/ACT il} hydroCHLORO hydroCHLORO No 1{table QD hydroCHLOR thiazide thiazide t_in_th Othiazide 12.5 MG 12.5 MG e_morni 12.5 MG ng} hydroCHLORO hydroCHLORO No hydroCHLOR thiazide thiazide Othiazide 12.5 MG 12.5 MG 12.5 MG Atorvastati Atorvastati No Atorvastat n Calcium n Calcium in Calcium 10 MG 10 MG 10 MG Norvasc 10 Norvasc 10 No 1{table QD Norvasc 10 MG MG t} MG Dulcolax Dulcolax No Dulcolax Atorvastati Atorvastati No 1{table QD Atorvastat n Calcium n Calcium t} in Calcium 10 MG 10 MG 10 MG Pantoprazol Pantoprazol No 1{table QD Pantoprazo e Sodium 40 e Sodium 40 t} le Sodium MG MG 40 MG Stool Stool No Stool Softener Softener Softener Irbesartan Irbesartan No 1{table QD Irbesartan 300 MG 300 MG t} 300 MG Irbesartan Irbesartan No Irbesartan 300 MG 300 MG 300 MG Norvasc 10 Norvasc 10 No Norvasc 10 MG MG MG Pantoprazol Pantoprazol No Pantoprazo e Sodium 40 e Sodium 40 le Sodium MG MG 40 MG PreserVisio PreserVisio No PreserVisi n AREDS 2 n AREDS 2 on AREDS 2 hydroCHLORO hydroCHLORO No 1{table QD hydroCHLOR thiazide thiazide t_in_th Othiazide 12.5 MG 12.5 MG e_morni 12.5 MG ng} hydroCHLORO hydroCHLORO No hydroCHLOR thiazide thiazide Othiazide 12.5 MG 12.5 MG 12.5 MG Atorvastati Atorvastati No Atorvastat n Calcium n Calcium in Calcium 10 MG 10 MG 10 MG Norvasc 10 Norvasc 10 No 1{table QD Norvasc 10 MG MG t} MG Dulcolax Dulcolax No Dulcolax Atorvastati Atorvastati No 1{table QD Atorvastat n Calcium n Calcium t} in Calcium 10 MG 10 MG 10 MG Cromolyn Cromolyn No 1{spray TID Cromolyn Sodium 5.2 Sodium 5.2 _in_eac Sodium 5.2 MG/ACT MG/ACT h_nostr MG/ACT il} Stool Stool No Stool Softener Softener Softener Irbesartan Irbesartan No 1{table QD Irbesartan 300 MG 300 MG t} 300 MG Immunizations Ordered Filled Immunization Date Status Comments Sourc e Immunization Name Name FLUZONE HIGH DOSE FLUZONE HIGH DOSE 2020-02-22 Completed [facility] OVER [facility] OVER 65 11:37:00 - [facility] FLUZONE HIGH DOSE FLUZONE HIGH DOSE 2020-02-22 Completed [facility] OVER 65 OVER 65 11:37:00 - [facility] FLUZONE HIGH DOSE FLUZONE HIGH DOSE 2020-02-22 Completed [facility] OVER 65 OVER 65 11:37:00 - [facility] FLUZONE HIGH DOSE FLUZONE HIGH DOSE 2020-02-22 Completed [facility] OVER 65 OVER 65 11:37:00 - [facility] FLUZONE HIGH DOSE FLUZONE HIGH DOSE 2020-02-22 Completed [facility] OVER 65 OVER 65 11:37:00 - [facility] FLUZONE HIGH DOSE FLUZONE HIGH DOSE 2020-02-22 Completed [facility] OVER 65 OVER 65 11:37:00 - [facility] FLUZONE HIGH DOSE FLUZONE HIGH DOSE 2020-02-22 Completed [facility] OVER 65 OVER 65 11:37:00 - [facility] FLUZONE HIGH DOSE FLUZONE HIGH DOSE 2020-02-22 Completed [facility] OVER 65 OVER 65 11:37:00 - [facility] FLUZONE HIGH DOSE FLUZONE HIGH DOSE 2020-02-22 Completed [facility] OVER 65 OVER 65 11:37:00 - [facility] FLUZONE HIGH DOSE FLUZONE HIGH DOSE 2020-02-22 Completed [facility] OVER 65 OVER 65 11:37:00 - [facility] FLUZONE HIGH DOSE FLUZONE HIGH DOSE 2020-02-22 Completed [facility] OVER 65 OVER 65 11:37:00 - [facility] FLUZONE HIGH DOSE FLUZONE HIGH DOSE Unknown Completed [facility] OVER 65 OVER 65 - [facility] FLUZONE HIGH DOSE FLUZONE HIGH DOSE Unknown Completed [facility] OVER 65 OVER 65 - [facility] FLUZONE HIGH DOSE FLUZONE HIGH DOSE Unknown Completed [facility] OVER 65 OVER 65 - [facility] Vital Signs Vital Name Observation Time Observation Value Comments Source height 2022-11-12 14:40:00 63 [in_i] [facility] weight 2022-11-12 14:40:00 187 [lb_av] [facility] temperature 2022-11-12 14:40:00 96.3 [degF] [facility] bmi 2022-11-12 14:40:00 33.12 kg/m2 [facility] oximetry 2022-11-12 14:40:00 97 % [facility] respiratory rate 2022-11-12 14:40:00 16 /min [facility] blood pressure 2022-11-12 14:40:00 137 mm[Hg] [facility] - systolic [facility] blood pressure 2022-11-12 14:40:00 71 mm[Hg] Common [facility] - diastolic [facility] Heart rate 2022-10-28 03:00:00 82 /min [facility] Systolic blood 2022-10-28 02:29:09 159 mm[Hg] [facility]iver [facility] pressure [facility] Diastolic blood 2022-10-28 02:29:09 71 mm[Hg] Unive rsity of pressure [facility] Oxygen saturation in 2022-10-28 02:29:09 94 /min [facility] Arterial blood by [facility] Pulse oximetry [facility] Body temperature 2022-10-28 02:06:00 37.11 [facility] Respiratory rate 2022-10-28 02:06:00 18 /min [facility] height 2022-10-28 02:06:00 157.5 cm [facility] Body weight 2022-10-28 02:06:00 85.73 kg Universi ty [facility] BMI 2022-10-28 02:06:00 34.57 kg/m2 Universi ty [facility] height 2022-07-03 14:30:00 63 [in_i] [facility] weight 2022-07-03 14:30:00 183.8 [lb_av] [facility] temperature 2022-07-03 14:30:00 97.3 [degF] [facility] bmi 2022-07-03 14:30:00 32.56 kg/m2 [facility] oximetry 2022-07-03 14:30:00 98 % [facility] respiratory rate 2022-07-03 14:30:00 18 /min Comm on [facility] blood pressure 2022-07-03 14:30:00 124 mm[Hg] Common [facility] - systolic [facility] blood pressure 2022-07-03 14:30:00 69 mm[Hg] Common [facility] - diastolic [facility] height 2022-07-03 14:40:00 63 [in_i] [facility] weight 2022-07-03 14:40:00 183.8 [lb_av] [facility] temperature 2022-07-03 14:40:00 97.3 [degF] [facility] bmi 2022-07-03 14:40:00 32.56 kg/m2 [facility] oximetry 2022-07-03 14:40:00 98 % Common [facility] respiratory rate 2022-07-03 14:40:00 18 /min Comm on [facility] blood pressure 2022-07-03 14:40:00 124 mm[Hg] Common [facility] - systolic [facility] blood pressure 2022-07-03 14:40:00 69 mm[Hg] Common [facility] - diastolic [facility] height 2022-03-15 15:00:00 63 [in_i] Common S [facility] weight 2022-03-15 15:00:00 186 [lb_av] [facility] temperature 2022-03-15 15:00:00 97.1 [degF] [facility] bmi 2022-03-15 15:00:00 32.94 kg/m2 [facility] oximetry 2022-03-15 15:00:00 98 % [facility] respiratory rate 2022-03-15 15:00:00 17 /min Comm on [facility] blood pressure 2022-03-15 15:00:00 138 mm[Hg] Common [facility] - systolic [facility] blood pressure 2022-03-15 15:00:00 71 mm[Hg] Common [facility] - diastolic [facility] height 2021-12-13 14:50:00 63 [in_i] Common S [facility] weight 2021-12-13 14:50:00 189 [lb_av] Common [facility] temperature 2021-12-13 14:50:00 96.9 [degF] Common S [facility] bmi 2021-12-13 14:50:00 33.48 kg/m2 [facility] oximetry 2021-12-13 14:50:00 98 % [facility] respiratory rate 2021-12-13 14:50:00 16 /min Comm on [facility] blood pressure 2021-12-13 14:50:00 130 mm[Hg] [facility] blood pressure 2021-12-13 14:50:00 61 mm[Hg] [facility] height 2021-09-13 14:10:00 63 [in_i] Common S [facility] weight 2021-09-13 14:10:00 190.9 [lb_av] Common [facility] temperature 2021-09-13 14:10:00 97.0 [degF] Common S pirit [facility] bmi 2021-09-13 14:10:00 33.81 kg/m2 Common S [facility] oximetry 2021-09-13 14:10:00 96 % [facility] 2021-09-13 14:10:00 16 /min Comm on [facility] blood pressure 2021-09-13 14:10:00 135 mm[Hg] [facility] blood pressure 2021-09-13 14:10:00 66 mm[Hg] [facility] height 2021-06-14 15:00:00 63 [in_i] Common S [facility] weight 2021-06-14 15:00:00 186.0 [lb_av] Common [facility] temperature 2021-06-14 15:00:00 97.2 [degF] Common S [facility] bmi 2021-06-14 15:00:00 32.94 kg/m2 Common S pirit [facility] oximetry 2021-06-14 15:00:00 98 % Common S [facility] respiratory rate 2021-06-14 15:00:00 17 /min Comm on [facility] blood pressure 2021-06-14 15:00:00 132 mm[Hg] [facility] blood pressure 2021-06-14 15:00:00 63 mm[Hg] [facility] height 2021-01-10 14:20:00 63 [in_i] [facility] weight 2021-01-10 14:20:00 184.4 [lb_av] [facility] temperature 2021-01-10 14:20:00 97.2 [degF] [facility] bmi 2021-01-10 14:20:00 32.66 kg/m2 [facility] S [facility] oximetry 2021-01-10 14:20:00 98 % [facility] respiratory rate 2021-01-10 14:20:00 17 /min Comm on [facility] blood pressure 2021-01-10 14:20:00 136 mm[Hg] [facility] - systolic [facility] blood pressure 2021-01-10 14:20:00 75 mm[Hg] [facility] diastolic [facility] Procedures Procedure Date / Time Performed Performing Clinician [facility] e XR CHEST 1 VW 2022-10-28 02:41:[address] [facility] XR FOREARM 2 VW RIGHT 2022-10-28 02:41:44 Tyrell Clements [facility] XR RIBS 3 VW LEFT 2022-10-28 02:41:44 Tyrell Clements [facility] XR SHOULDER 2+ VW 2022-10-28 02:41:44 Tyrell Clements [facility] Encounters Start End Encounter Admission Attending Care Care Encounter Source Date/Time Date/Time Type Type Clinicians Facility Department ID 2022-07-02 Outpatient Connell, STLMLC STLC [id number] Common 07:22:00 Barbara [id number] [facility] 2022-05-29 Outpatient Connell, STLMLC STLC [id number] Common 12:06:00 Barbara 10803 [facility] 2022-03-13 Outpatient Connell, STLMLC STLMLC [id number] Common 11:15:00 Barbara [id number] [facility] 2021-12-15 Outpatient Connell, STLMLC STLMLC [id number] Common 15:42:00 Barbara [facility] 2021-06-21 Outpatient Connell, STLMLC STLMLC [id number] Common 14:37:42 Barbara [facility] 2021-06-21 Outpatient Connell, STLMLC STLMLC [id number] Common 13:26:50 Barbara [id number] [facility] 2021-06-21 Outpatient Connell, STLMLC STLMLC [id number] Common 12:49:46 Barbara 72178 [facility] 2021-06-21 Outpatient Connell, STLMLC STLMLC [id number] Common 12:35:49 Barbara [id number] [facility] 2021-06-21 Outpatient Connell, STLMLC STLMLC [id number] Common 12:35:26 Barbara 73771 [facility] 2021-06-21 Outpatient Connell, STLMLC STLMLC [id number] Common 11:24:53 Barbraa 01258 [facility] 2021-06-21 Outpatient Connell, STLMLC STLMLC [id number] Common 11:17:41 Barbara 29004 [facility] 2021-06-21 Outpatient Connell, STLMLC STLMLC [id number] Common 11:01:32 Barbara 81443 [facility] 2022-11-12 2022-11-12 OFFICE STLMLC STLMLC [id number] Co mmon 00:00:00 00:00:00 VISIT [facility] LEVEL 4 [facility] 2022-10-30 2022-10-30 (TEL) STLMLC STLMLC [id number] Co mmon 00:00:00 00:00:00 [facility] 2022-10-29 2022-10-29 (TEL) STLMLC STLMLC [id number] Co mmon 00:00:00 00:00:00 [facility] 2022-10-27 2022-10-27 Emergency X GEOVANNY CLEMENTS ERT [id number] Univers 21:05:00 23:18:00 TYRELL cook [facility] 2022-10-27 2022-10-27 Emergency Chelsy Perez [facility] [id number] Univers 21:05:00 23:18:00 Tyrell Clements [place] [id number] [facility] [id number] [facility] [id number] [facility] [address] [place] 2022-07-03 2022-07-03 OFFICE STLMLC STLMLC [id number] Co mmon 00:00:00 00:00:00 VISIT [facility] EST[facility] PT - [facility]I LEVEL 4 [facility] 2022-07-03 2022-07-03 SUB ANNUAL STLMLC STLMLC [id number] Common 00:00:00 00:00:00 MCR [facility] WELLNESS - CHI VISIT [facility] 2022-03-15 2022-03-15 OFFICE STLMLC STLMLC [id number] Co mmon 00:00:00 00:00:00 VISIT [facility] ESTAB PT - [facility]I LEVEL 4 [facility] 2022-01-10 2022-01-10 (TEL) STLMLC STLMLC [id number] Co mmon 00:00:00 00:00:00 [facility] - [facility]I [facility] 2021-12-13 2021-12-13 OFFICE STLMLC STLMLC [id number] Co mmon 00:00:00 00:00:00 VISIT [facility] ESTAB PT - [facility]I LEVEL 4 [facility] 2021-09-13 2021-09-13 OFFICE STLMLC STLMLC [id number] Co mmon 00:00:00 00:00:00 VISIT [facility] ESTAB PT - [facility]I LEVEL 4 [facility] 2021-09-07 2021-09-07 (TEL) STLMLC STLMLC [id number] Co mmon 00:00:00 00:00:00 Spirit - [facility] 2021-06-14 2021-06-14 PREV VISIT STLMLC STLMLC [id number] Common 00:00:00 00:00:00 EST AGE 65 Spi rit & OVER - CHI [facility] 2021-03-23 2021-03-23 (TEL) STLMLC STLMLC [id number] Co mmon 00:00:00 00:00:00 [facility] 2021-03-09 2021-03-09 (TEL) STLMLC STLMLC [id number] Co mmon 00:00:00 00:00:00 [facility] 2021-01-10 2021-01-10 OFFICE STLMLC STLMLC [id number] Co mmon 00:00:00 00:00:00 VISIT [facility] LEVEL 4 [facility] 2020-12-09 2020-12-09 Outpatient STLMLC STLMLC [id number] Common 00:00:00 00:00:00 [facility] 2020-08-31 2020-08-31 Outpatient STLMLC STLMLC [id number] Common 00:00:00 00:00:00 [facility] 2020-07-28 2020-07-28 Outpatient STLMLC STLMLC [id number] Common 00:00:00 00:00:00 [facility] 2020-04-29 2020-04-29 Outpatient STLMLC STLMLC [id number] Common 00:00:00 00:00:00 [facility] 2020-04-28 2020-04-28 Outpatient STLMLC STLMLC [id number] Common 00:00:00 00:00:00 [facility] 2020-03-16 2020-03-16 Outpatient STLMLC STLMLC [id number] Common 00:00:00 00:00:00 [facility] 2020-02-04 2020-02-04 [facility] [id number] Common 09:25:00 09:25:[address] [facility] 2020-01-28 2020-01-28 [facility] [id number] Common 13:40:00 13:40:[address] [facility] 2020-01-28 2020-01-28 [facility] [id number] Common 13:40:00 13:40:[address] [facility] 2019-10-29 2019-10-29 [facility] [id number] Common 14:30:00 14:30:[address] [facility] 2019-09-04 2019-09-04 [facility] [id number] Common 14:55:00 14:55:[address] [facility] 2019-06-15 2019-06-15 [facility] [id number] Common 14:30:00 14:30:[address] [facility] 2019-04-24 2019-04-24 [facility] [id number] Common 10:04:00 10:04:[address] [facility] 2019-03-12 2019-03-12 [facility] [id number] Common 14:30:00 14:30:[address] [facility] 2019-02-04 2019-02-04 [facility] [id number] Common 11:01:00 11:01:[address] [facility] 2018-12-16 2018-12-16 [facility] [id number] Common 09:46:00 09:46:[address] [facility] 2018-12-10 2018-12-10 [facility] [id number] Common 14:45:00 14:45:[address] [facility] 2018-09-10 2018-09-10 [facility] [id number] Common 14:45:00 14:45:[address] [facility] 2018-05-15 2018-05-15 [facility] [id number] Common 13:30:00 13:30:[address] [facility] 2018-02-11 2018-02-11 [facility] [id number] Common 14:07:00 14:07:[address] [facility] 2018-02-11 2018-02-11 [facility] [id number] Common 13:30:00 13:30:00 t Specialty/U Sp radha Specialty rology - [facility] /Urology Clinic [facility] 2018-01-16 2018-01-16 [facility] [id number] Common 13:30:00 13:30:[address] [facility] 2017-12-03 2017-12-03 [facility] [id number] Common 11:26:00 11:26:[address] [facility] 2017-11-04 2017-11-04 [facility] [id number] Common 15:30:00 15:30:[address] [facility] 2017-09-16 2017-09-16 [facility] [id number] Common 13:30:00 13:30:[address] [facility] Results Test Description Test Time Test Comments Results Result Comments Source HEMOGLOBIN A1c 2023-03-11 00:00:00 Test Item Value Reference Range Interpretation Comme nts HEMOGLOBIN A1c (test code = 5.9 % See_Comment H [Automated message] The system 4548-4) which generated this result transmitted ref erence range: 4.2-5.6 %. The reference range was not used to int erpret this result as normal/abnor mal. LIPID PANEL WITH REFLEX DIRECT [id number] 00:00:00 Test Item Value Reference Range Interpretation Comments CALC LDL CHOL (test 89 MG/DL See_Comment [Automa sheri message] code = 70159-5) The system [facility] generated this result transmit sheri reference range : <100 MG/DL. The reference range was not used to interpret this result as normal/abnormal . CHOLESTEROL (test code 176 MG/DL See_Comment [Aut omated message] = 2093-3) The system [employer] generated this result transmit sheri reference range : <200 MG/DL. The reference range was not used to interpret this result as normal/abnormal . HDL CHOLESTEROL (test 71 MG/DL See_Comment [Auto mated message] code = 2085-9) The system [employer] generated this result transmit sheri reference range : >39 MG/DL. The refe rence range was not u sed to interpret th is result as normal/abnormal . RISK RATIO LDL/HDL 1.25 RATIO See_Comment [Automat ed message] (test code = 22762-7) The sy stem which generated this result transmit sheri reference range : <3.22 RATIO. Th e reference range was not used to interpret this result as normal/abnormal . TRIGLYCERIDES (test 74 MG/DL See_Comment [Automa sheri message] code = 2571-8) The system [employer] generated this result transmit sheri reference range : <150 MG/DL. The reference range was not used to interpret this result as normal/abnormal . COMPREHENSIVE METABOLIC [id number] 00:00:00 Test Item Value Reference Range Interpretation Comments ALBUMIN (test code = 4.8 G/DL See_Comment [Autom ated message] 1751-7) The system [employer] generated this result transmit sheri reference range : 3.5-5.2 G/DL. T he reference range was not used to interpret this result as normal/abnormal . ALKALINE PHOSPHATASE 83 U/L See_Comment [Autom ated message] (test code = 6768-6) The sys tem which generated this result transmit sheri reference range : 40-142 U/L. The reference range was not used to interpret this result as normal/abnormal . BILIRUBIN, TOTAL 0.5 MG/DL See_Comment [Automated message] (test code = 1975-2) The sys tem which generated this result transmit sheri reference range : <=1.2 MG/DL. Th e reference range was not used to interpret this result as normal/abnormal . BUN (test code = 24 MG/DL See_Comment H [Automated message] 3094-0) The system [employer] generated this result transmit sheri reference range : 8-23 MG/DL. The reference range was not used to interpret this result as normal/abnormal . CALCIUM (test code = 10.3 MG/DL See_Comment [Autom ated message] 96410-2) The system [facility] generated this result transmit sheri reference range : 8.5-10.5 MG/DL. The reference range was not used to interpret this result as normal/abnormal . CALC A/G RATIO (test 1.7 RATIO See_Comment [Autom ated message] code = 1759-0) The system [facility] generated this result transmit sheri reference range : 1.0-2.6 RATIO. The reference range was not used to interpret this result as normal/abnormal . CALC BUN/CREAT (test 23 RATIO See_Comment [Autom ated message] code = 3097-3) The system [facility] generated this result transmit sheri reference range : 6-28 RATIO. The reference range was not used to interpret this result as normal/abnormal . CALC GLOBULIN (test 2.8 G/DL See_Comment [Automa sheri message] code = 11505-9) The system [facility] generated this result transmit sheri reference range : 1.9-3.7 G/DL. T he reference range was not used to interpret this result as normal/abnormal . CARBON DIOXIDE (test 22 MEQ/L See_Comment [Autom ated message] code = 1963-8) The system [facility] generated this result transmit sheri reference range : 19-31 MEQ/L. Th e reference range was not used to interpret this result as normal/abnormal . CHLORIDE (test code 105 MEQ/L See_Comment [Automa sheri message] = 2074-0) The system [facility] generated this result transmit sheri reference range : 95-107 MEQ/L. T he reference range was not used to interpret this result as normal/abnormal . CREATININE (test 1.03 MG/DL See_Comment [Automated message] code = 2160-0) The system [facility] generated this result transmit sheri reference range : 0.60-1.30 MG/DL . The reference range was not used to interpret this result as normal/abnormal . eGFR (2020 CKD-EPI) 56 ML/MIN/1.73 See_Comment L [Auto mated message] (test code = The system [facility] 46436-3) generated this result transmit sheri reference range : >60 ML/MIN/1.73. Th e reference range was not used to interpret this result as normal/abnormal . GLUCOSE (test code = 86 MG/DL See_Comment [Autom ated message] 1558-6) The system [facility] generated this result transmit sheri reference range : 70-99 MG/DL. Th e reference range was not used to interpret this result as normal/abnormal . POTASSIUM (test code 4.4 MEQ/L See_Comment [Autom ated message] = 1943-3) The system [facility] generated this result transmit sheri reference range : 3.5-5.4 MEQ/L. The reference range was not used to interpret this result as normal/abnormal . PROTEIN, TOTAL (test 7.6 G/DL See_Comment [Autom ated message] code = 2885-2) The system [facility] generated this result transmit sheri reference range : 6.1-8.3 G/DL. T he reference range was not used to interpret this result as normal/abnormal . AST (test code = 27 U/L See_Comment [Automated message] 1920-8) The system [facility] [employer] generated this result transmit sheri reference range : 9-40 U/L. The reference range was not used to interpret this result as normal/abnormal . ALT (test code = 26 U/L See_Comment [Automated message] 4572-6) The system [facility] [employer] generated this result transmit sheri reference range : 5-40 U/L. The reference range was not used to interpret this result as normal/abnormal . SODIUM (test code = 143 MEQ/L See_Comment [Automa sheri message] 1151-2) The system [facility] generated this result transmit sheri reference range : 133-146 MEQ/L. The reference range was not used to interpret this result as normal/abnormal .
--- NOTE | 2023-04-25 12:45 | EDPHYS ---
Physician Documentation [facility] Name: Kendal Shah Age: 77 yrs Sex: Female : 1945 Arrival Date: 04/25/2023 Time: 11:55 Bed IW5 Private MD: ED Physician Shamar Muñiz HPI: 04/25 12:25 This 77 yrs old Black Female presents to ER via Ambulatory with complaints of flu sb4 symptoms. 12:25 Patient reports cough, congestion, sneezing, generalized weakness, decreased appetite, sb4 nausea, soft stools x3 days. She does endorse a positive sick contact. She states that she has been taking [id number] flu medication without significant relief. Does endorse low-grade fever. Denies any chest pain or shortness of breath. Historical: - Allergies: 12:17 Ibuprofen; ko1 - PMHx: 12:17 GERD; Hypertension; ko1 - Immunization history:: Adult Immunizations up to date. - Social history:: Smoking status: Patient denies any tobacco usage or history of. ROS: 12:25 Cardiovascular: Negative for chest pain, palpitations, and edema, Respiratory: Negative sb4 for shortness of breath, cough, wheezing, and pleuritic chest pain, 12:25 Constitutional: Positive for body aches, fatigue, fever, malaise, poor PO intake, 12:25 Abdomen/GI: Positive for nausea, diarrhea, 12:25 All other systems are negative, Exam: 12:25 Constitutional: This is a well developed, well nourished patient who is awake, alert, sb4 and in no acute distress. Head/Face: Normocephalic, atraumatic. Eyes: Extra-ocular motions intact. Periorbital areas with no swelling, redness, or edema. ENT: Mucous membranes moist. Cardiovascular: Regular rate and rhythm with a normal S1 and S2. Respiratory: Lungs have equal breath sounds bilaterally, clear to auscultation and percussion. No rales, rhonchi or wheezes noted. No increased work of breathing, no retractions or nasal flaring. Abdomen/GI: Soft, non-tender, no distension. Skin: Warm, dry with normal turgor. Normal color with no rashes, no lesions, and no evidence of cellulitis. MS/ Extremity: Pulses equal, no cyanosis. Neurovascular intact. Full, normal range of motion. Neuro: Awake and alert, GCS 15, oriented to person, place, time, and situation. Motor strength 5/5 in all extremities. Sensory grossly intact. Vital Signs: 12:14 BP 120 / 62; Pulse 98; Resp 18; Temp 98.1; Pulse Ox 99% ; ko1 13:19 BP 118 / 64; Pulse 94; Resp 18; Pulse Ox 99% ; cp4 NIH Stroke Scale Scores: 13:19 NIHSS Score: 0 cp4 MDM: 12:20 Patient medically screened. sb4 12:25 Data reviewed: vital signs, nurses notes. sb4 12:43 Counseling: I had a detailed discussion with the patient and/or guardian regarding the sb4 historical points, exam findings, and any diagnostic results supporting the discharge/admit diagnosis, lab results, to return to the emergency department if symptoms worsen or persist or if there are any questions or concerns that arise at home. 04/25 12:20 Order name: SARS RAPID; Complete Time: 12:56 sb4 04/25 12:20 Order name: Flu; Complete Time: 12:45 sb4 Administered Medications: No medications were administered Disposition: 15:24 Co-signature as Attending Physician, Shamar Muñiz MD I reviewed the patient's care rn provided by the Advanced Practice Provider and agree with the diagnosis and treatment plan. Disposition Summary: 04/25/23 12:44 Discharge Ordered Notes: Location: Home sb4 Problem: an ongoing problem sb4 Symptoms: are unchanged sb4 Condition: Stable sb4 Diagnosis - Influenza B sb4 Followup: sb4 - With: Emergency Department - When: As needed - Reason: Trouble breathing, Worsening of condition Discharge Instructions: - Discharge Summary Sheet sb4 - Influenza, Adult, [id number] sb4 Forms: - Medication Reconciliation Form sb4 - Thank You Letter sb4 - Antibiotic Education sb4 - Prescription Opioid Use sb4 - Patient Portal Instructions sb4 - Leadership Thank You Letter sb4 NIH Stroke Scale - NIH Stroke Score Date: 04/25/2023 Time: 13:19 Total Score = 0 10. Dysarthria (speech clarity - read or repeat words) - 0(Normal) 11. Extinction and Inattention (visual/tactile/auditory/spatial/personal) - 0(No abnormality) 1a. Level of Consciousness (LOC) - 0(Alert) 1b. Level of Consciousness (LOC) (Month \T\ Age) - 0(Both) 1c. LOC Commands (Open \T\ Closes Eyes/Nail Polish Brush Machine Feeder) - 0(Both) 2. Best Gaze (Lateral Gaze Paresis) - 0(Normal) 3. Visual Field Loss - 0(No visual loss) 4. Facial Palsy - 0(Normal) 5a. Left Arm: Motor (10-second hold) - 0(No drift) 5b. Right Arm: Motor (10-second hold) - 0(No drift) 6a. Left Leg: Motor (5-second hold - always test supine) - 0(No drift) 6b. Right Leg: Motor (5-second hold - always test supine) - 0(No drift) 7. Limb Ataxia (finger/nose \T\ heel/deras - test with eyes open) - 0(Absent) 8. Sensory Loss (pinprick arms/legs/face) - 0(Normal) 9. Best Language: Aphasia (description/naming/reading) - 0(No aphasia) Initials: cp4 Signatures: Dispatcher [employer] Shamar Mendez MD MD rn Oliver, Kathy, RN RN ko1 Gunjan Carter PA-Renetta PA-C sb4
--- NOTE | 2023-04-25 12:45 | ER ---
Nurse's Notes [facility] Name: Kendal Shah Age: 77 yrs Sex: Female : 1945 Arrival Date: 04/25/2023 Time: 11:55 Bed IW5 Private MD: Diagnosis: Influenza B Presentation: 04/25 12:14 Chief complaint: Patient states: N/V since Saturday, soft stools started today, little ko1 fever couple days ago, some ough and congestion. Coronavirus screen: congestion, cough unrelated to allergies, nausea, runny nose, vomiting. Client presents with at least one sign or symptom that may indicate coronavirus-19. Standard/surgical mask placed on the client. Ebola Screen: No symptoms or risks identified at this time. Initial Sepsis Screen: Does the patient meet any 2 criteria? No. Patient's initial sepsis screen is negative. Does the patient have a suspected source of infection? No. Patient's initial sepsis screen is negative. Risk Assessment: Do you want to hurt yourself or someone else? Patient reports no desire to harm self or others. Onset of symptoms is unknown. 12:14 Method Of Arrival: Ambulatory ko1 12:14 Acuity: ARTHUR 4 ko1 Triage Assessment: 12:17 General: Appears in no apparent distress. comfortable, Behavior is calm, cooperative, ko1 appropriate for age. Pain: Denies pain. Neuro: Reports generalized weakness. Historical: - Allergies: 12:17 Ibuprofen; ko1 - PMHx: 12:17 GERD; Hypertension; ko1 - Immunization history:: Adult Immunizations up to date. - Social history:: Smoking status: Patient denies any tobacco usage or history of. Screenin:19 [facility] ED Fall Risk Assessment (Adult) History of falling in the last 3 months, cp4 including since admission No falls in past 3 months (0 pts) Confusion or Disorientation No (0 pts) Intoxicated or Sedated No (0 pts) Impaired Gait No (0 pts) Mobility Assist Device Used No (0 pt) Altered Elimination No (0 pt) Score/Fall Risk Level 0 - 2 = Low Risk Oriented to surroundings, Maintained a safe environment, Educated pt \T\ family on fall prevention, incl call for assistance when getting out of bed, Hourly rounding (assess needs \T\ fall precautionary measures) done. Abuse screen: Denies threats or abuse. Nutritional screening: No deficits noted. Tuberculosis screening: No symptoms or risk factors identified. Assessment: 13:19 VAN Scoring: Arm Drift: Patients demonstrates NO arm weakness. Patient is VAN Negative. cp4 Visual Disturbance: No visual disturbance noted. Aphasia: No aphasia noted. Neglect: No neglect noted. Germfask Swallow Protocol. Vital Signs: 12:14 BP 120 / 62; Pulse 98; Resp 18; Temp 98.1; Pulse Ox 99% ; ko1 13:19 BP 118 / 64; Pulse 94; Resp 18; Pulse Ox 99% ; cp4 NIH Stroke Scale Scores: 13:19 NIHSS Score: 0 cp4 ED Course: 12:02 Patient arrived in ED. mg5 12:03 Gunjan Carter PA-C is PHCP. sb4 12:03 Shamar Muñiz MD is Attending Physician. sb4 12:16 Triage completed. ko1 12:17 Arm band placed on right wrist. Patient placed in waiting room, Patient notified of ko1 wait time. 12:35 Flu Sent. kj1 12:35 SARS RAPID Sent. kj1 13:19 Fall risk band placed. Provided Education on: influenza. cp4 13:19 No provider procedures requiring assistance completed. Patient did not have IV access cp4 during this emergency room visit. Administered Medications: No medications were administered Medication: 13:19 VIS not applicable for this client. cp4 Outcome: 12:44 Discharge ordered by . sb4 13:19 Discharged to home ambulatory, cp4 13:19 Condition: stable 13:19 Discharge instructions given to patient, Instructed on discharge instructions, follow up and referral plans. Demonstrated understanding of instructions, follow-up care, 13:22 Patient left the ED. cp4 NIH Stroke Scale - NIH Stroke Score Date: 04/25/2023 Time: 13:19 Total Score = 0 10. Dysarthria (speech clarity - read or repeat words) - 0(Normal) 11. Extinction and Inattention (visual/tactile/auditory/spatial/personal) - 0(No abnormality) 1a. Level of Consciousness (LOC) - 0(Alert) 1b. Level of Consciousness (LOC) (Month \T\ Age) - 0(Both) 1c. LOC Commands (Open \T\ Closes Eyes/Doorperson Or Luggage Porter) - 0(Both) 2. Best Gaze (Lateral Gaze Paresis) - 0(Normal) 3. Visual Field Loss - 0(No visual loss) 4. Facial Palsy - 0(Normal) 5a. Left Arm: Motor (10-second hold) - 0(No drift) 5b. Right Arm: Motor (10-second hold) - 0(No drift) 6a. Left Leg: Motor (5-second hold - always test supine) - 0(No drift) 6b. Right Leg: Motor (5-second hold - always test supine) - 0(No drift) 7. Limb Ataxia (finger/nose \T\ heel/deras - test with eyes open) - 0(Absent) 8. Sensory Loss (pinprick arms/legs/face) - 0(Normal) 9. Best Language: Aphasia (description/naming/reading) - 0(No aphasia) Initials: cp4 Signatures: Dalila Lopez kj1 Jany Shannon, RN RN ko1 Gunjan Carter PA-C PARandy sb4 Kasandra Yeboah mg5 Deidra Malone cp4
[2023-04-25 12:53] LABS: SARS-CoV-2 Antigen Rapid Res Negative (Negative)
[2023-04-25 13:47] VITALS: TEMP 98.1; O2SAT 99
[2023-04-25 13:49] VITALS: BP 118/64
== END 2023-04-25 13:22 | disposition home or self-care (01) ==
LOC: ER 11:55
DX: J10.1 Influenza due to other identified influenza virus with other respiratory manifestations (principal); Z11.52 Encounter for screening for COVID-19; I10 Essential (primary) hypertension; Z88.6 Allergy status to analgesic agent
CPT/HCPCS: 36415; 87804; 87811; 99284